=== PATIENT | female | born 1955 | race Caucasian/White ===

== ENCOUNTER → 2017-08-19 | Outpatient (CLI) | payer OTHER ==
--- NOTE | 2017-08-20 13:54 | MAMMOGRAPHY REPORT ---
BILATERAL DIGITAL SCREENING MAMMOGRAM TOMOSYNTHESIS WITH CAD: 08/19/2017 CLINICAL HISTORY: Routine screening. Patient has no complaints. TECHNIQUE: Breast tomosynthesis in addition to standard 2D mammography was performed. Current study was also evaluated with a Computer Aided Detection (CAD) system. COMPARISON: Comparison is made to exams dated: 09/03/2015 ultrasound, 09/03/2015 mammogram, 05/13/2015 mammogram, 05/23/2013 mammogram, 06/12/2011 mammogram, and 12/26/2009 mammogram - [facility]. BREAST COMPOSITION: The tissue of both breasts is heterogeneously dense, which may obscure small mas ses. FINDINGS: No suspicious masses, calcifications, or areas of architectural distortion are noted in ei ther breast. There has been no significant interval change compared to prior exams. Scattered bilate ral benign-appearing calcifications are not significantly changed. IMPRESSION: ACR BI-RADS CATEGORY 2: BENIGN There is no mammographic evidence of malignancy. A 1 year screening mammogram is recommended. The pa tient will receive written notification of the results. Approximately 10% of breast cancers are not detected with mammography. A negative mammographic report should not delay biopsy if a clinically suggestive mass is present. Sangeetha Brooks M.D. ah/:08/19/2017 15:51:26 Public Works Director: Paty MULLER)(M), [facility] letter sent: Normal 1/2 BI-RADS Code: ACR BI-RADS Category 2: Benign
== END | disposition home or self-care (01) ==
LOC: C.MAMM 15:24
PROVIDERS: ATTEND Family Medicine
DX: Z12.31 Encounter for screening mammogram for malignant neoplasm of breast (principal)

== ENCOUNTER 2023-04-20 00:10 | Inpatient (IN) ==
[2023-04-20] MEDS ORDERED: ALBUTEROL 0.083% NEBU SOLN 3 ML VIAL NEB STA (00:45)
--- NOTE | 2023-04-20 00:45 | Emergency Department Note ---
Impression & Plan Acute hyponatremia, Shortness of breath ED Provider Note NAME: RYAN BENNETT AGE: 67 SEX: F : 1955 ARRIVES VIA: Walk-In INFORMANT: Patient ED PROVIDER(S): Samuel Morrow DO CHIEF COMPLAINT: shortness of breath HPI: Patient is a 67-year-old female who presents ER for cough, congestion, and shortness of breath which started 1 week ago. She notes that she is bringing up white phlegm. She was up last night coughing the whole night. She was seen in urgent care today. She was given inhaler and this her coughing and shortness of breath have improved significantly. She denies any history of asthma or COPD. She does know when she does feel little lightheaded. Denies any belly pain did vomit once after coughing fit. No dysuria, urgency, or frequency. Additional history was obtained from at bedside who notes that she has been getting worse ADDITIONAL HISTORY OBTAINED: Per HPI Chronic Medical/Social Conditions Affecting Care: Per HPI PAST MEDICAL HISTORY:See Below PAST SURGICAL HISTORY:See Below FAMILY HISTORY:See Below SOCIAL HISTORY:See Below HOME MEDICATIONS:See Below ALLERGIES:See Below VITALS:See Below PHYSICAL EXAMINATION: GENERAL: Sitting up in bed, alert, well appearing, well nourished, no distress, non-toxic EYE EXAM: normal conjunctiva. OROPHARYNX: no exudate, no erythema, lips, buccal mucosa, and tongue normal and mucous membranes are moist NECK: supple, no nuchal rigidity, no adenopathy, non-tender LUNGS: Diffuse wheezing bilateral. Normal chest wall mechanics HEART: no murmurs, S1 normal and S2 normal ABDOMEN: abdomen soft, non-tender, normo-active bowel sounds, no masses, no rebound or guarding. UPPER EXTREMITIES: upper extremities are grossly normal. LOWER EXTREMITIES: No pitting edema. Calf cervical NEURO EXAM: Normal sensorium, cranial nerves II-XII grossly intact, normal speech, no gross weakness of arms, no gross weakness of legs. MEDICAL DECISION MAKING: Patient is a 67-year-old female who presents to the ER for cough congestion shortness of breath. IV was established blood work was obtained. Labs show no significant leukocytosis or anemia. BMP with a moderate hyponatremia at 122 and hypokalemia 2.9. LFTs bilirubin was unremarkable. Troponin was negative. Lipase was normal. COVID flu RSV was negative. Chest x-ray was clean. Patient was given neb treatment and did feel improved. With the hyponatremia I did discuss case with Dr. Aleman for further evaluation management treatment. External Records Reviewed: None Consults/Care Managements Discussions: Per MDM Triage Nursing notes reviewed. Limited review of prior medical records performed Vital Signs: reviewed and remarkable for no significant abnormalities Differential diagnosis: Differential diagnoses includes but is not limited to pneumonia, bronchitis, COPD/Asthma exacerbation, pneumothorax, pulmonary embolism, congestive heart failure, acute coronary syndrome ER treatment provided: See below Diagnostics interpreted by me include EKG and cardiac monitoring as listed below: -Cardiac Monitoring: An order was placed for continuous cardiac monitoring. The monitor shows a rate of 98 with sinus rhythm. -ECG: Sinus rhythm rate 95 Normal axis No PVCs QTc 525 LBBB -Laboratory studies:Interpreted by me as stated above in MDM and shown below. Imaging studies: Xrays: As interpreted by me: Portable AP upright 1 view of the chest shows no focal infiltrate CTs show: none Procedures:none Critical Care: None Past Med/Surg History Social History Smoking Status: Never smoker Feels Safe at Home: Yes Allergies Allergies Allergy/AdvReac Type Severity Reaction Status Date / Time No Known Allergies Allergy Unverified 12/11/19 17:53 Home Meds Home Medications Medication Instructions Recorded Confirmed hydrochlorothiazide 25 mg tablet 25 mg PO QAM 12/11/19 04/20/23 omeprazole 40 mg capsule,delayed 40 mg PO QAM 12/11/19 04/20/23 release valsartan 80 mg tablet 80 mg PO QAM 12/11/19 04/20/23 albuterol sulfate 90 mcg/actuation 2 puff inhalation QID PRN 04/20/23 04/20/23 aerosol inhaler Shortness Of Breath Or Wheezing amoxicillin 875 mg-potassium 1 tab PO BID 04/20/23 04/20/23 clavulanate 125 mg tablet potassium chloride 20 mEq 20 meq PO QAM 04/20/23 04/20/23 tablet,extended release rosuvastatin 5 mg tablet 5 mg PO QPM 04/20/23 04/20/23 Results & Data (ED) Vital Signs Vital Signs - 24 hr 04/20/23 00:25 04/20/23 00:48 04/20/23 00:49 Temperature 36.9 C Temperature Source Temporal Artery Scan Pulse Rate 104 H 98 H Pulse Rate [Finger] 99 H Pulse Rhythm [Finger] Regular Pulse Strength [Finger] Normal Respiratory Rate 16 20 Respiratory Effort / Characteristics Non-Labored Spontaneous Non-Labored Spontaneous Respiratory Depth Normal Normal Blood Pressure 162/104 H Blood Pressure [Right Arm] 139/97 Blood Pressure Mean 123 Blood Pressure Mean [Right Arm] 111 Pulse Oximetry 97 98 Oxygen Delivery Method Room Air Room Air Oxygen Flow Rate Sepsis Recent Fever Within 48 Hours No Sepsis New/Unexplained Change in Mental Status No Sepsis Action Taken by Nursing No Action Required 04/20/23 00:50 04/20/23 02:12 Temperature Temperature Source Pulse Rate Pulse Rate [Finger] 99 H Pulse Rhythm [Finger] Regular Pulse Strength [Finger] Normal Respiratory Rate 22 Respiratory Effort / Characteristics Non-Labored Spontaneous Respiratory Depth Normal Blood Pressure Blood Pressure [Right Arm] 146/88 H Blood Pressure Mean Blood Pressure Mean [Right Arm] 107 Pulse Oximetry 98 96 Oxygen Delivery Method Room Air Room Air Oxygen Flow Rate 0 Sepsis Recent Fever Within 48 Hours Sepsis New/Unexplained Change in Mental Status Sepsis Action Taken by Nursing Laboratory Data 04/20/23 00:51 04/20/23 00:51 Lab Results 04/20/23 04/20/23 Range/Units 00:50 00:51 WBC 8.91 (4.8-10.8) K/ul RBC 4.21 (4.20-5.40) M/uL Hgb 13.2 (12.0-16.0) g/dl Hct 35.8 L (37.0-47.0) % MCV 85.0 (80.0-100.0) fL MCH 31.4 (25.0-34.0) pg MCHC 36.9 H (32.0-36.0) g/dL RDW Std Deviation 35.2 L (36.4-46.3) fL RDW Coeff of Gill 11.5 (11.5-14.5) % Plt Count 248 (130-400) K/uL MPV 10.2 (9.4-12.4) fL Immature Gran % (Auto) 0.3 % Neut % (Auto) 70.7 % Lymph % (Auto) 19.3 % [place] % (Auto) 7.4 % Eos % (Auto) 1.7 % Baso % (Auto) 0.6 % Neut # (Auto) 6.30 (1.40-6.50) K/uL Lymph # (Auto) 1.72 (1.20-3.40) K/uL [place] # (Auto) 0.66 H (0.11-0.59) K/uL Eos # (Auto) 0.15 (0.00-0.50) K/uL Baso # (Auto) 0.05 (0.00-0.20) K/uL Immature Gran # (Auto) 0.03 (0.01-0.20) K/uL Sodium 122 L (136-145) mmol/L Potassium 2.9 L (3.5-5.1) mmol/L Chloride 88 L (98-107) mmol/L Carbon Dioxide 24 (21-32) mmol/L Anion Gap 10 (3-11) BUN 8 (6-23) mg/dl Creatinine 0.71 (0.6-1.2) mg/dl Est Cr Clr Drug Dosing 81.6 ml/min Est GFR ( Amer) 103.6 ml/min Est GFR (Non-Af Amer) 89.4 ml/min BUN/Creatinine Ratio 11.3 (10-20) Glucose 122 H (70-99(Fasting)) mg/dl Calcium 9.7 (8.6-10.3) mg/dl Total Bilirubin 0.9 (0.2-1.0) mg/dl AST 20 (13-39) U/L ALT 17 (7-52) U/L Alkaline Phosphatase 67 (34-104) U/L Troponin I High Sens 3.6 (0-14) pg/ml Total Protein 7.6 (6.0-8.3) gm/dl Albumin 4.6 (3.4-5.0) gm/dl Globulin 3.0 (2.5-4.0) gm/dl Albumin/Globulin Ratio 1.5 (0.9-2) Lipase 38 (11-82) U/L SARS-CoV-2 (PCR) NEGATIVE (Negative) Influenza Type A (PCR) Negative (Neg) Influenza Type B (PCR) Negative (Neg) RSV (RT-PCR) Negative (Neg) Administered Medications Discontinued Medications Albuterol (Albuterol 0.083% Nebu Soln 3 Ml Vial) 2.5 mg NEB NOW STA; Protocol Stop: 04/20/23 00:46 Last Admin: 04/20/23 01:03 Dose: 2.5 mg Documented By: ASIM Lorazepam (Lorazepam 1 Mg Tab) 1 mg SL NOW STA Stop: 04/20/23 01:49 Last Admin: 04/20/23 01:54 Dose: 1 mg Documented By: ASIM Discharge Plan Visit Data Chief Complaint: Shortness of Breath/Dyspnea Stated Complaint: SOB, LOW O2 LEVELS, DIZZINESS ED Provider: Samuel Morrow Discharge Problem: Acute hyponatremia, Shortness of breath Forms Stand Alone Forms: My [facility] Prescriptions Prescriptions: No Action omeprazole 40 mg capsule,delayed release(DR/EC) 40 mg PO QAM hydrochlorothiazide 25 mg tablet 25 mg PO QAM valsartan 80 mg tablet 80 mg PO QAM albuterol sulfate 90 mcg/actuation HFA aerosol inhaler 2 puff INHALATION QID PRN (Reason: Shortness Of Breath Or Wheezing) amoxicillin-pot clavulanate 875-125 mg tablet 1 tab PO BID Rx Instructions: ordered 04/19/23 take for 10 days potassium chloride 20 mEq tablet extended release 20 meq PO QAM rosuvastatin 5 mg tablet 5 mg PO QPM Referrals Referrals: Heather Borjas DO [Primary Care Provider] -
[2023-04-20 01:07] LABS: Basophils # (auto) 0.05 K/uL (0.00-0.20); Basophils % (auto) 0.6 %; Eosinophils # (auto) 0.15 K/uL (0.00-0.50); Eosinophils % (auto) 1.7 %; Hematocrit (blood only) 35.8 % (37.0-47.0); Hemoglobin 13.2 g/dl (12.0-16.0); Immature Granulocytes # (auto) 0.03 K/uL (0.01-0.20); Immature Granulocytes % (auto) 0.3 %; Lymphocytes # (auto) 1.72 K/uL (1.20-3.40); Lymphocytes % (auto) 19.3 %; Mean Corpuscular Hemoglobin 31.4 pg (25.0-34.0); Mean Corpuscular Hgb Conc 36.9 g/dL (32.0-36.0); Mean Platelet Volume 10.2 fL (9.4-12.4); Monocytes # (auto) 0.66 K/uL (0.11-0.59); Monocytes % (auto) 7.4 %; Neutrophils % (auto) 70.7 %; Platelet Count 248 K/uL (130-400); RDW Coefficient of Variation 11.5 % (11.5-14.5); RDW Standard Deviation 35.2 fL (36.4-46.3); Red Blood Count 4.21 M/uL (4.20-5.40); White Blood Count 8.91 K/ul (4.8-10.8)
[2023-04-20 01:20] LABS: Albumin Globulin Ratio 1.5 (0.9-2); Albumin Level 4.6 gm/dl (3.4-5.0); BUN Creatinine Ratio 11.3 (10-20); Bilirubin,Total 0.9 mg/dl (0.2-1.0); Calcium 9.7 mg/dl (8.6-10.3); Creatinine Clr Calc Pharmacy 81.6 ml/min; Est GFR (African American) 103.6 ml/min; Est GFR (Non-African American) 89.4 ml/min; Potassium 2.9 mmol/L (3.5-5.1); Total Protein 7.6 gm/dl (6.0-8.3)
[2023-04-20 01:44] LABS: Influenza A virus by PCR Negative (Neg); Influenza B virus by PCR Negative (Neg); RSV by PCR Negative (Neg); SARS CoV2 RNA(COVID-19) Ceph NEGATIVE (Negative)
[2023-04-20] MEDS ORDERED: LORazepam 1 MG TAB SL STA (01:48)
[2023-04-20 01:53] LABS: Troponin I High Sensitivity 3.6 pg/ml (0-14)
[2023-04-20] MEDS: POTASSIUM CHLORIDE / WTR 10 MEQ/100 ML PLCT IV SCH ×2 (03:04→03:53)
[2023-04-20] MEDS ORDERED: POTASSIUM CHLORIDE CRTAB 20 MEQ TABCR PO STA (03:17)
[2023-04-20] MEDS ORDERED: guaiFENesin/CODEINE 100MG/10MG 5ML UDC PO STA (03:57)
--- NOTE | 2023-04-20 04:12 | History & Physical Report ---
Date of Service April 20, 2023 Assessment & Plan (1) Acute bronchitis: Plan: 67-year-old female with past medical significant for hypokalemia, hyperlipidemia, allergic rhinitis, hypertension, generalized anxiety disorder, presents with shortness of breath and cough ongoing since last Wednesday and progressively worsening. Bilateral rhonchi and wheezing heard. Acute bronchitis Shortness of breath and cough Bilateral rhonchi COVID, flu and RSV negative Check respiratory bio fire No leukocytosis or fevers We will check procalcitonin levels We will place on short course of steroids Nebs [id number] and as needed We will get a get CT chest for better evaluation Close monitor Hyponatremia Sodium 122 Patient states poor intake last few days We will hold hydrochlorothiazide Gentle fluids NS 50 mill per hour Follow urine osmole's and urine sodium levels Follow serial BMP Slow correction Consult nephrology in a.m. Hypokalemia Potassium 2.9 Replace We will further repeat labs Hypertension Continue valsartan Holding hydrochlorothiazide We will monitor GERD On omeprazole Hyperlipidemia On statin DVT prophylaxis Lovenox Disposition Med/telemetry Addendum; Ct scan showed atypical infection in lower lobes. placed on Doxycycline. Consulted Pulmonary. Full code History of Present Illness Chief Complaint: Shortness of breath and cough Primary Care Provider: Heather Borjas DO 67-year-old female with past medical significant for hypokalemia, hyperlipidemia, allergic rhinitis, hypertension, generalized anxiety disorder, presents with shortness of breath and cough ongoing since last Wednesday. Cough is progressively getting worse. Denies any fevers. Today she was feeling lig htheaded. No blurred visions. No earache. Has some sore throat from coughing. Last few days she is not eating and drinking much. No nausea. No abdominal pain. No diarrhea. Normal bladder movements. Hemodynamics stable currently. Past medical history. As mentioned above Past surgical history. Colonoscopy. Colposcopy. Endometrial cryoablation. Hysteroscopy with biopsy. Rhinoplasty. Laser surgery for rosacea. Social history. . Quit smoking 1982. Alcohol occasional. No drug use. Family history. Mother had Alzheimer's disease. Breast cancer. Father had colon cancer. SVT. Maternal grandmother had breast cancer. Paternal grandmother had breast cancer. Allergies Allergy/AdvReac Type Severity Reaction Status Date / Time No Known Allergies Allergy Unverified 12/11/19 17:53 Home Medications Medication Instructions Recorded Confirmed Type hydrochlorothiazide 25 mg tablet 25 mg PO QAM 12/11/19 04/20/23 History omeprazole 40 mg capsule,delayed 40 mg PO QAM 12/11/19 04/20/23 History release valsartan 80 mg tablet 80 mg PO QAM 12/11/19 04/20/23 History albuterol sulfate 90 mcg/actuation 2 puff inhalation QID PRN 04/20/23 04/20/23 History aerosol inhaler Shortness Of Breath Or Wheezing amoxicillin 875 mg-potassium 1 tab PO BID 04/20/23 04/20/23 History clavulanate 125 mg tablet potassium chloride 20 mEq 20 meq PO QAM 04/20/23 04/20/23 History tablet,extended release rosuvastatin 5 mg tablet 5 mg PO QPM 04/20/23 04/20/23 History Past Med/Surg History Social History Smoking Status: Former smoker Hx Alcohol Use: Yes Alcohol type: wine Hx Substance Use: No Preferred Language: Danish Communication Ability: Effective Sales Support Advisor Required: No Beliefs That Will Affect Care: None Current Living Situation: Spouse Other Information That Helps Us Care for You: No Feels Safe at Home: Yes Safety Concerns: Feels Safe At This Time Review of Systems Review of Systems: All systems reviewed & are unremarkable except as noted in HPI & below Physical Exam Physical Exam: General- Not in distress Head- atraumatic Eyes- PERRL. ENT- oropharynx clear Neck- supple, no JVD. Lungs- clear to auscultation b/l rhonchi and wheezing heard Heart- regular rhythm; no murmur, no gallop. Abdomen- normal bowel sounds, soft, nontender, no distension. Extremities- no pretibial edema, no erythema seen. Neuro- alert, oriented x 3; PERRL, no facial palsy; no dysarthria; moves extremities. Skin- warm & dry Results & Data Results & Data Vital Signs (Past 12 Hours) Vital Signs Temp Pulse Pulse Resp BP BP Pulse Ox 04/20/23 04:00 87 20 141/95 H 97 04/20/23 02:12 99 H 22 146/88 H 96 04/20/23 00:50 98 04/20/23 00:49 99 H 20 139/97 98 04/20/23 00:48 98 H 04/20/23 00:25 36.9 C 104 H 16 162/104 H 97 O2 Del Method O2 Flow Rate 04/20/23 04:00 Room Air 04/20/23 02:12 Room Air 04/20/23 00:50 Room Air 0 04/20/23 00:49 Room Air 04/20/23 00:48 04/20/23 00:25 Room Air Code Status & VTE Plan VTE Prophylaxis Plan VTE Prophylaxis will be ordered: Yes
[2023-04-20] MEDS: SODIUM CHLORIDE 0.9% 1,000 ML IV SCH ×2 (04:19→22:20)
[2023-04-20 05:01] LABS: Adenovirus PCR Not Detected (NotDetected); Bordetella parapertussis PCR Not Detected (NotDetected); Bordetella pertussis PCR Not Detected (NotDetected); Chlamydia pneumoniae PCR Not Detected (NotDetected); Coronavirus 229E PCR Not Detected (NotDetected); Coronavirus CoV-2 (COVID19)PCR Not Detected (NotDetected); Coronavirus HKU1 PCR Not Detected (NotDetected); Coronavirus NL63 PCR Not Detected (NotDetected); Coronavirus OC43PCR Not Detected (NotDetected); Human Metapneumovirus PCR Not Detected (NotDetected); Influenza A PCR Not Detected (NotDetected); Influenza B PCR Not Detected (NotDetected); Mycoplasma pneumoniae PCR Not Detected (NotDetected); Parainfluenza Virus 1 PCR Not Detected (NotDetected); Parainfluenza Virus 2 PCR Not Detected (NotDetected); Parainfluenza Virus 3 PCR Not Detected (NotDetected); Parainfluenza Virus 4 PCR Not Detected (NotDetected); Respiratory Syncytial VirusPCR Not Detected (NotDetected); Rhinovirus/Enterovirus PCR Not Detected (NotDetected)
--- NOTE | 2023-04-20 05:58 | CT Scan Report ---
Exam(s): CT CHEST Without Contrast EXAM: CT Chest Without Intravenous Contrast CLINICAL HISTORY: Reason for exam: persisitent cough. TECHNIQUE: Axial computed tomography images of the chest without intravenous contrast. Automated exposure control was utilized for the study. A dose lowering technique was utilized adhering to the principles of ALARA. COMPARISON: No relevant prior studies available. FINDINGS: Lungs: Tree-in-bud nodularity within the lower lobes which may relate to chronic atypical infection. Pleural space: Unremarkable. No pneumothorax. No significant effusion. Heart: Coronary artery calcifications. No significant pericardial effusion. Mediastinum: Small esophageal hiatal hernia. Bones/joints: Degenerative changes in the spine. No acute fracture. No dislocation. Soft tissues: Unremarkable. Vasculature: Atherosclerotic disease. Lymph nodes: Prominent retrocrural lymph nodes measuring up to 6 mm which may be reactive in nature. Kidneys and ureters: Simple right renal cyst. No follow-up of this simple cyst is necessary. Simple left renal cyst. No follow-up of this simple cyst is necessary. IMPRESSION: 1. Tree-in-bud nodularity within the lower lobes which may relate to chronic atypical infection. 2. No other acute findings. 3. Incidental findings as described. Electronically signed by: Ervin Tucker MD 04/20/23 05:57 AM
[2023-04-20] MEDS ORDERED: ACETAMINOPHEN 325 MG TAB PO PRN (06:29)
[2023-04-20] MEDS ORDERED: ALBUTEROL HFA 8 GM INHALER INH PRN (06:29)
[2023-04-20] MEDS ORDERED: POLYETHYLENE (MIRALAX) 17 GM PACK PO PRN (06:29)
[2023-04-20] MEDS ORDERED: guaiFENesin/CODEINE 100MG/10MG 5ML UDC PO PRN (06:29)
[2023-04-20] MEDS ORDERED: NITROGLYCERIN SL 0.4 MG/TAB TAB SL PRN (06:29)
--- NOTE | 2023-04-20 07:11 | XRay Report ---
XR chest 1V portable CLINICAL HISTORY: Chest pain, nonspecific TECHNIQUE: Single frontal radiograph of the chest was obtained. Comparison: Comparison is made to chest radiograph 12/11/2019 FINDINGS: No lines and tubes are seen. The cardiomediastinal silhouette is normal. The lungs are clear. No evid ence of pleural effusion or pneumothorax. IMPRESSION: No acute chest disease. ACT 112: Negative or not required by law. Electronically signed by: Rafa Riggins M.D. 04/20/2023 7:10 AM
[2023-04-20] MEDS: ENOXAPARIN INJ 40 MG/0.4 ML SYR SQ SCH (07:18)
[2023-04-20 07:56] LABS: BUN Creatinine Ratio 8.6 (10-20); Calcium 9.2 mg/dl (8.6-10.3); Creatinine Clr Calc Pharmacy 82.8 ml/min; Est GFR (African American) 105.4 ml/min; Est GFR (Non-African American) 90.9 ml/min; Magnesium 1.9 mg/dl (1.7-2.4); Potassium 3.6 mmol/L (3.5-5.1); Troponin I High Sensitivity 3.8 pg/ml (0-14)
[2023-04-20 08:00] LABS: Basophils # (auto) 0.05 K/uL (0.00-0.20); Basophils % (auto) 0.6 %; Eosinophils # (auto) 0.15 K/uL (0.00-0.50); Eosinophils % (auto) 1.9 %; Hematocrit (blood only) 33.6 % (37.0-47.0); Hemoglobin 12.3 g/dl (12.0-16.0); Immature Granulocytes # (auto) 0.03 K/uL (0.01-0.20); Immature Granulocytes % (auto) 0.4 %; Lymphocytes # (auto) 1.74 K/uL (1.20-3.40); Lymphocytes % (auto) 21.7 %; Mean Corpuscular Hemoglobin 31.2 pg (25.0-34.0); Mean Corpuscular Hgb Conc 36.6 g/dL (32.0-36.0); Mean Corpuscular Volume 85.3 fL (80.0-100.0); Mean Platelet Volume 10.6 fL (9.4-12.4); Monocytes # (auto) 0.65 K/uL (0.11-0.59); Monocytes % (auto) 8.1 %; Neutrophils % (auto) 67.3 %; Platelet Count 222 K/uL (130-400); RDW Coefficient of Variation 11.6 % (11.5-14.5); Red Blood Count 3.94 M/uL (4.20-5.40); White Blood Count 8.02 K/ul (4.8-10.8)
[2023-04-20] MEDS: VALSARTAN 80 MG TAB PO SCH (08:34)
[2023-04-20] MEDS: POTASSIUM CHLORIDE CRTAB 20 MEQ TABCR PO SCH (08:34)
[2023-04-20] MEDS: DOXYCYCLINE HYCLATE 100 MG CAP PO SCH ×2 (08:34→20:33)
[2023-04-20] MEDS: BENZONATATE 100 MG CAPSULE PO SCH ×3 (08:35→20:33)
[2023-04-20] MEDS: PANTOprazole 40 MG TAB PO SCH (08:35)
[2023-04-20] MEDS: ALBUT/IPRATROP 3MG/0.5MG NEB 3 ML VIAL NEB SCH ×4 (08:38→19:24)
[2023-04-20] MEDS ORDERED: predniSONE 20 MG TAB PO SCH (09:00)
[2023-04-20] MEDS ORDERED: diphenhydrAMINE Capsule 25 MG CAP PO ONE (09:45)
--- NOTE | 2023-04-20 10:11 | Nephrology Consultation ---
Date of Consultation April 20, 2023 Assessment & Plan (1) Hyponatremia: Severe but improving hyponatremia unsure chronicity, therefore chronic. Presenting sodium 122 at 01 100 on April 20. Laboratory studies most consistent with polydipsia in the setting of decreased food intake with illness. Complicated by thiazide use as an outpatient plus or minus chronic structural lung pathology Continue to hold HCTZ Fluid limit 1.8 L daily ordered Target sodium for midnight is no more than 128; currently improving acceptable rate Reasonable for now to continue low rate of normal saline - agree w/ q6h bmp x 2 more today - f/u pulmonary recs (2) Hypertension: With acceptable control currently on monotherapy with losartan. This should continue History of Present Illness Reason for Consultation: hyponatremia Requesting Physician: Dr Guzman Attending Physician: Ap Sharp MD History of Present Illness 67-year-old female whom I am asked to evaluate for hyponatremia was admitted overnight for acute bronchitis. Past medical history includes hypertension on hydrochlorothiazide, anxiety not on OP meds, hyperlipidemia. Presenting sodium 122 at 0100 today. Follow-up sodium at 0700 124. Patient endorsed poor oral intake for the few days prior to presentation. Hydrochlorothiazide was held and patient was started on normal saline at 50 mL hourly. Patient also had hypokalemia on presentation with presenting potassium 2.9. She was started on normal saline at 50 mL hourly. She received 40 mill equivalents oral potassium as well as 20 mill equivalents IV potassium as well as standing 20 mill equivalent daily oral dose. Also started on doxycycline. Denies f/c, ambulatory dysfunction. dyspnea improving; no cough. states she came to ED b/c her "face felt funny" along w/ worsening dyspnea and lightheadedness, w/ worries she could pass out. no new/worrisome voiding sx; she takes no nsaids. no diarrhea. endorses she was drinking >> what she was eating..had emesis x 1. denies confusion/altered MS. Allergies Allergy/AdvReac Type Severity Reaction Status Date / Time No Known Allergies Allergy Unverified 12/11/19 17:53 Home Medications Medication Instructions Recorded Confirmed Type hydrochlorothiazide 25 mg tablet 25 mg PO QAM 12/11/19 04/20/23 History omeprazole 40 mg capsule,delayed 40 mg PO QAM 12/11/19 04/20/23 History release valsartan 80 mg tablet 80 mg PO QAM 12/11/19 04/20/23 History albuterol sulfate 90 mcg/actuation 2 puff inhalation QID PRN 04/20/23 04/20/23 History aerosol inhaler Shortness Of Breath Or Wheezing amoxicillin 875 mg-potassium 1 tab PO BID 04/20/23 04/20/23 History clavulanate 125 mg tablet potassium chloride 20 mEq 20 meq PO QAM 04/20/23 04/20/23 History tablet,extended release rosuvastatin 5 mg tablet 5 mg PO QPM 04/20/23 04/20/23 History Patient History Medical History Generalized anxiety disorder Hyperlipidemia Hypertension Surgical History History of colposcopy H/O colonoscopy Social History Smoking Status: Former smoker Hx Alcohol Use: Yes Alcohol type: wine Hx Substance Use: No Preferred Language: Egyptian Communication Ability: Effective Mental Health Consultant Required: No Beliefs That Will Affect Care: None Current Living Situation: Spouse Other Information That Helps Us Care for You: No Feels Safe at Home: Yes Safety Concerns: Feels Safe At This Time Assistive Devices: None Review of Systems 2 Review of Systems: All systems reviewed & are unremarkable except as noted in HPI & below Physical Exam 2 Constitutional: well developed, well nourished and cooperative; no acute distress Eyes: EOM intact bilaterally ENMT: Ears: no external ear abnormality Nose: no external nose abnormality Mouth: + dry oral mucous membranes Neck: no nuchal rigidity Respiratory: normal respiratory effort Auscultation: + diminished lung sounds, + crackles (bibasilar), + rhonchi (some [place] L base) and + wheezes Cardiovascular: RRR, no murmur, no edema Gastrointestinal (Abdomen): Inspection/Auscultation: normal bowel sounds P ercussion/Palpation: abdomen soft; abdomen nontender Musculoskeletal: Extremities: strength 5/5 throughout Skin: no rashes, warm and dry Neurologic: cedeno, fluent speech, no tremor Psychiatric: Orientation: alert and oriented x 3 Affect: + anxious affect and + tearful affect Results & Data Vital Signs (Past 12 Hours) Vital Signs Temp Pulse Pulse Resp BP BP Pulse Ox 04/20/23 07:20 36.6 C 84 16 139/93 97 04/20/23 07:13 82 04/20/23 07:00 36.6 C 83 16 139/93 96 04/20/23 06:31 80 20 120/77 96 04/20/23 06:31 04/20/23 06:27 81 20 120/77 94 04/20/23 06:26 89 20 120/77 94 04/20/23 04:46 88 04/20/23 04:00 87 20 141/95 H 97 04/20/23 02:12 99 H 22 146/88 H 96 04/20/23 00:50 98 04/20/23 00:49 99 H 20 139/97 98 04/20/23 00:48 98 H 04/20/23 00:25 36.9 C 104 H 16 162/104 H 97 Pulse Ox O2 Del Method O2 Del Method O2 Flow Rate 04/20/23 07:20 Room Air 04/20/23 07:13 04/20/23 07:00 Room Air 04/20/23 06:31 Room Air 04/20/23 06:31 95 Room Air 04/20/23 06:27 Room Air 04/20/23 06:26 Room Air 04/20/23 04:46 04/20/23 04:00 Room Air 04/20/23 02:12 Room Air 04/20/23 00:50 Room Air 0 04/20/23 00:49 Room Air 04/20/23 00:48 04/20/23 00:25 Room Air Laboratory Results 04/20/23 06:53 04/20/23 06:53 Serum osmolality 253 Urine osmolality 158 Urine sodium [address] chest Noncon (images personally reviewed by me): Simple left renal cyst; liver cyst, per report tree-in-bud nodularity bilateral lower lobes related possibly to chronic atypical infection Chest x-ray (images reviewed personally by me): No acute process
--- NOTE | 2023-04-20 11:06 | Electrocardiogram Report ---
Test Reason : Blood Pressure : / mmHG Vent. Rate : 095 BPM Atrial Rate : 095 BPM P-R Int : 164 ms QRS Dur : 146 ms QT Int : 418 ms P-R-T Axes : 040 065 024 degrees QTc Int : 525 ms Normal sinus rhythm Right bundle branch block Abnormal ECG When compared with ECG of 11-DEC-2019 16:28, No significant change Confirmed by Alexis Leija ([id number]) on 04/20/2023 11:06:33 AM Referred By: REFERRED SELF Confirmed By:Alexis Leija
[2023-04-20] MEDS: amLODIPine BESYLATE 5 MG TAB PO SCH (11:07)
--- NOTE | 2023-04-20 12:33 | Pulmonary Consultation ---
Date of Consultation April 20, 2023 Assessment & Plan (1) Shortness of breath: (2) Acute hyponatremia: (3) Pneumonia: Laterality: bilateral Pneumonia type: due to unspecified organism Plan 67 year old female without significant past medical history presented with pneumonia and dehydration. Outpatient antibiotics and follow up is appropriate if able to maintain sufficient po intake. Mucinex and adding humidifier can be used to facilitate expectoration. Patient should follow up with primary in two weeks and as needed with pulmonary. History of Present Illness Attending Physician: Ap Sharp MD History of Present Illness 67-year-old female with hyperlipidemia, allergic rhinitis, hypertension, generalized anxiety disorder, presents with shortness of breath and cough ongoing since last Wednesday. Cough is progressively getting worse. Denies any fevers. Today she was feeling lightheaded. No blurred visions. Has some sore throat from coughing. Last few days she is not eating and drinking much. No nausea. No abdominal pain. No diarrhea. No pulmonary history. 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 Chest CT showed bibasilar nodular infiltrates. She received IVF and doxycycline in the ED. She reports feeling better at time of exam. She is anxious about CT findings. Allergies Allergy/AdvReac Type Severity Reaction Status Date / Time No Known Allergies Allergy Unverified 12/11/19 17:53 Home Medications Medication Instructions Recorded Confirmed Type hydrochlorothiazide 25 mg tablet 25 mg PO QAM 12/11/19 04/20/23 History omeprazole 40 mg capsule,delayed 40 mg PO QAM 12/11/19 04/20/23 History release valsartan 80 mg tablet 80 mg PO QAM 12/11/19 04/20/23 History albuterol sulfate 90 mcg/actuation 2 puff inhalation QID PRN 04/20/23 04/20/23 History aerosol inhaler Shortness Of Breath Or Wheezing amoxicillin 875 mg-potassium 1 tab PO BID 04/20/23 04/20/23 History clavulanate 125 mg tablet potassium chloride 20 mEq 20 meq PO QAM 04/20/23 04/20/23 History tablet,extended release rosuvastatin 5 mg tablet 5 mg PO QPM 04/20/23 04/20/23 History Patient History Medical History Generalized anxiety disorder Hyperlipidemia Hypertension Surgical History History of colposcopy H/O colonoscopy Social History Smoking Status: Former smoker Hx Alcohol Use: Yes Alcohol type: wine Hx Substance Use: No Preferred Language: Divehi Communication Ability: Effective Speeder Tender Required: No Beliefs That Will Affect Care: None Current Living Situation: Spouse Other Information That Helps Us Care for You: No Feels Safe at Home: Yes Safety Concerns: Feels Safe At This Time Assistive Devices: None Review of Systems Review of Systems: as per HPI. remainder of ROS is negative. Physical Exam Respiratory: normal respiratory effort Auscultation: + rhonchi Psychiatric: A+Ox3, euthymic affect Results & Data Results & Data Vital Signs (Past 12 Hours) Vital Signs Temp Pulse Pulse Resp BP BP Pulse Ox 04/20/23 11:36 97 H 11 L 99 04/20/23 11:08 99 H 18 135/89 95 04/20/23 07:20 36.6 C 84 16 139/93 97 04/20/23 07:13 82 04/20/23 07:00 36.6 C 83 16 139/93 96 04/20/23 06:31 80 20 120/77 96 04/20/23 06:31 04/20/23 06:27 81 20 120/77 94 04/20/23 06:26 89 20 120/77 94 04/20/23 04:46 88 04/20/23 04:00 87 20 141/95 H 97 04/20/23 02:12 99 H 22 146/88 H 96 04/20/23 00:50 98 04/20/23 00:49 99 H 20 139/97 98 04/20/23 00:48 98 H 04/20/23 00:25 36.9 C 104 H 16 162/104 H 97 Pulse Ox O2 Del Method O2 Del Method O2 Flow Rate FiO2 04/20/23 11:36 Room Air 21 04/20/23 11:08 Room Air 04/20/23 07:20 Room Air 04/20/23 07:13 04/20/23 07:00 Room Air 04/20/23 06:31 Room Air 04/20/23 06:31 95 Room Air 04/20/23 06:27 Room Air 04/20/23 06:26 Room Air 04/20/23 04:46 04/20/23 04:00 Room Air 04/20/23 02:12 Room Air 04/20/23 00:50 Room Air 0 04/20/23 00:49 Room Air 04/20/23 00:48 04/20/23 00:25 Room Air PG Care Time/CCT Total # of Minutes Spent Total Time Spent with Patient: Total time spent is greater than 50% in coordination of care (as documented) at patient's floor/unit and/or counseling patient: Coding Level of Care Code 50943 OP VST NEW MOD 45-59 MIN Diagnoses Shortness of breath R06.02 Acute hyponatremia E87.1 Pneumonia J18.9 Laterality: bilateral Pneumonia type: due to unspecified organism
[2023-04-20 13:07] LABS: BUN Creatinine Ratio 10.8 (10-20); Calcium 9.6 mg/dl (8.6-10.3); Creatinine Clr Calc Pharmacy 78.3 ml/min; Est GFR (African American) 98.5 ml/min; Potassium 3.4 mmol/L (3.5-5.1)
[2023-04-20] MEDS ORDERED: ALPRAZolam 0.25 MG TABLET PO STA (13:13)
[2023-04-20] MEDS ORDERED: ALPRAZolam 0.5 MG TABLET PO STA (13:25)
--- NOTE | 2023-04-20 14:41 | Communication Note ---
Date of Service: April 20, 2023 Patient seen and examined at bedside. She reports that she is feeling better; reports that dizziness has improved. Hydrochlorothiazide on hold for hyponatremia and hypokalemia. Discussed with patient about alternative antihypertensive in place of hydrochlorothiazide. She started on amlodipine 5 mg once a day Possible DC in a.m. if her sodium corrects appropriately. On physical examination; Constitutional: WD/WN, vitals as above, NAD, sitting up in bed, pleasant, conversing easily Respiratory: normal respiratory effort, lungs clear to auscultation, no wheeze, rales, rhonchi. Normal insp/exp effort, no accessory muscle use Cardiovascular: RRR, no murmur, no edema Vessels: no JVD or carotid bruit Chest: normal inspection of chest Abdomen: normal bowel sounds, soft, nontender, no hepatosplenomegaly Musculoskeletal: no cyanosis or clubbing, extremities motor strength 5/5 Skin: no rashes, warm and dry normal turgor Neurologic: PERRL, EOMI, accommodation nl, no face palsy, no dysarthria CN's II- XI intact bilaterally and moves all extremities Psychiatric: A+Ox3, euthymic affect
--- NOTE | 2023-04-20 16:31 | Electrocardiogram Report ---
Test Reason : Blood Pressure : / mmHG Vent. Rate : 120 BPM Atrial Rate : 120 BPM P-R Int : 158 ms QRS Dur : 128 ms QT Int : 376 ms P-R-T Axes : 026 070 -02 degrees QTc Int : 531 ms Sinus tachycardia Right bundle branch block Acute anterior infarction Abnormal ECG When compared with ECG of 20-APR-2023 00:47, No significant change Confirmed by Alexis Leija ([id number]) on 04/20/2023 4:30:46 PM Referred By: REFERRED SELF Confirmed By:Alexis Leija
[2023-04-20] MEDS ORDERED: ZOLPIDEM TARTRATE 5 MG TAB PO PRN (20:14)
[2023-04-20 20:25] LABS: BUN Creatinine Ratio 7.5 (10-20); Calcium 9.7 mg/dl (8.6-10.3); Creatinine Clr Calc Pharmacy 48.3 ml/min; Est GFR (African American) 54.9 ml/min; Est GFR (Non-African American) 47.4 ml/min
[2023-04-20] MEDS: methylPREDNISolone 40 MG in SYRINGE 0 ML IV SCH (20:33)
[2023-04-20] MEDS ORDERED: ROSUVASTATIN CALCIUM 5 MG TAB PO SCH (21:00)
[2023-04-20] MEDS ORDERED: MELATONIN 3 MG TAB PO ONE (21:00)
[2023-04-21] MEDS: ALBUT/IPRATROP 3MG/0.5MG NEB 3 ML VIAL NEB SCH ×3 (07:29→14:52)
[2023-04-21] MEDS: methylPREDNISolone 40 MG in SYRINGE 0 ML IV SCH (09:47)
[2023-04-21] MEDS: PANTOprazole 40 MG TAB PO SCH (09:48)
[2023-04-21] MEDS: POTASSIUM CHLORIDE CRTAB 20 MEQ TABCR PO SCH (09:48)
[2023-04-21] MEDS: amLODIPine BESYLATE 5 MG TAB PO SCH (09:48)
[2023-04-21] MEDS: VALSARTAN 80 MG TAB PO SCH (09:48)
[2023-04-21] MEDS: ENOXAPARIN INJ 40 MG/0.4 ML SYR SQ SCH ×2 (09:48→09:57)
[2023-04-21] MEDS: BENZONATATE 100 MG CAPSULE PO SCH ×2 (09:52→15:14)
--- NOTE | 2023-04-21 11:33 | Nephrology Progress Note ---
Date of Service April 21, 2023 Assessment & Plan (1) Hyponatremia: Plan: Severe but improving hyponatremia unsure chronicity, therefore chronic. Presenting sodium 122 at 0100 on April 20. Laboratory studies most consistent with polydipsia in the setting of decreased food intake with illness. Complicated by thiazide use as an outpatient plus or minus BL PNA Continue to hold HCTZ Fluid limit 1.8 L daily ordered as of last evening was improving acceptably >> labs for today ordered >> back at 134 WILL SIGN OFF; from neph standpoint she can be d/c home NEPHRO RECOMMENDATIONS -add hctz to allergy/intolerance list in EPIC > hyponatremia -check bmp at PCP f/u -d/c on low Na diet and 1.8L FR -monotherapy alone appears adequate for BP control -recommend hospital d/c appt w/ me in 2-3 wks with bmp, urine osm, serum osm, rd urine sodium to be ordered by neph RN prior to visit; if she has home BP cuff, should bring cuff and 3 Day bp log to f/u visit w/ me; renal nurse to instruct pt on how to do this care coordinated w/ dr Eubanks (2) Hypertension: Plan: With acceptable control currently on monotherapy with losartan. This should continue and is adequte Admission and Anticipated Discharge Date Admission Date: April 20, 2023 Subjective seen on rounds midday; labs still pending at that time. breathing better. ongoing cough possibly even more productive. no edema, no n/v Review of Systems 2 Review of Systems: All systems reviewed & are unremarkable except as noted in Subjective Physical Exam 2 Constitutional: well developed, well nourished and cooperative; no acute distress Eyes: EOM intact bilaterally ENMT: Ears: no external ear abnormality Nose: no external nose abnormality Mouth: + dry oral mucous membranes Neck: no nuchal rigidity Respiratory: normal respiratory effort Auscultation: + diminished lung sounds and + wheezes; no crackles and no rhonchi Cardiovascular: Rate/Rhythm: regular rhythm and + tachycardic Extremities: no edema Gastrointestinal (Abdomen): Inspection/Auscultation: normal bowel sounds P ercussion/Palpation: abdomen soft; abdomen nontender Musculoskeletal: Extremities: strength 5/5 throughout Skin: no rashes, warm and dry Psychiatric: Orientation: alert and oriented x 3 Affect: + anxious affect and + tearful affect Results & Data Vital Signs (Past 12 Hours) Vital Signs Temp Pulse Pulse Resp BP Pulse Ox O2 Del Method 04/21/23 07:37 36.4 C L 87 18 109/70 95 Room Air 04/21/23 07:30 Room Air 04/21/23 07:30 69 16 96 Room Air 04/21/23 07:00 71 04/21/23 03:07 36.6 C 95 H 18 128/85 94 Room Air 04/21/23 01:09 101 H Laboratory Results 04/20/23 06:53 04/21/23 12:17
[2023-04-21] MEDS: DOXYCYCLINE HYCLATE 100 MG CAP PO SCH (11:47)
[2023-04-21 13:04] LABS: BUN Creatinine Ratio 14.1 (10-20); Calcium 9.8 mg/dl (8.6-10.3); Creatinine Clr Calc Pharmacy 68.2 ml/min; Est GFR (African American) 83.3 ml/min; Est GFR (Non-African American) 71.9 ml/min; Potassium 3.9 mmol/L (3.5-5.1)
--- NOTE | 2023-04-21 14:42 | Hospitalist Progress Note ---
Date of Service April 21, 2023 Assessment & Plan (1) Acute bronchitis: Plan: 67-year-old female with past medical significant for hypokalemia, hyperlipidemia, allergic rhinitis, hypertension, generalized anxiety disorder, presents with shortness of breath and cough ongoing since last Wednesday and progressively worsening. Bilateral rhonchi and wheezing heard. Acute bronchitis/Atypical Pneumonia--POA --CT Chest: Tree-in-bud nodularity within the lower lobes which may relate to chronic atypical infection. No other acute findings. -- BioFire negative --Normal procalcitonin Pulmonology consulted Continue doxycycline IV Solu-Medrol transition to prednisone Saturating well on room air Plan to be discharged home today Hyponatremia Sodium 122>>129>>134 Hydrochlorothiazide discontinued Received gentle IV fluids Appreciate nephrology input Needs follow-up with nephrology upon discharge Hypokalemia Replace and monitor Hypertension Continue valsartan Hydrochlorothiazide discontinued Monitor BP GERD Continue omeprazole Hyperlipidemia On statin DVT prophylaxis Lovenox Disposition Home Admission and Anticipated Discharge Date Admission Date: April 20, 2023 Subjective Patient is seen and examined at bedside States feeling much better today Less cough Denies any dizziness, shortness of breath Sodium levels improved Discussed with nephrology today No other complaints Review of Systems Review of Systems: All systems reviewed & are unremarkable except as noted in Subjective Physical Exam Physical Exam: Physical Exam: Vitals signs as noted above General Appearance:Moderately built and nourished, no apparent distress Head: normocephalic, Atraumatic Eyes: normal inspection, EOMI Neck: supple, Trachea midline Respiratory/Chest: Decreased breath sounds, CTA, No accessory muscle use Cardiovascular: S1, S2, No murmur Abdomen/GI:Soft, Non tender, Bowel sounds present Extremities/Musculoskeletal:normal inspection, no edema Neurologic/Psych:AAOX3, grossly no focal neurological deficits Skin: normal color, warm Results & Data Results & Data Vital Signs (Past 12 Hours) Vital Signs Temp Pulse Pulse Resp BP Pulse Ox O2 Del Method 04/21/23 11:32 103 H 18 96 Room Air 04/21/23 07:37 36.4 C L 87 18 109/70 95 Room Air 04/21/23 07:30 Room Air 04/21/23 07:30 69 16 96 Room Air 04/21/23 07:00 71 04/21/23 03:07 36.6 C 95 H 18 128/85 94 Room Air Laboratory Results [facility] 04/20/23 04/21/23 19:18 12:17 Sodium 129 L 134 L Potassium 4.0 3.9 Chloride 97 L 101 Carbon Dioxide 21 23 BUN 9 12 Creatinine 1.20 D 0.85 D Glucose 209 H 130 H Calcium 9.7 9.8
--- NOTE | 2023-04-21 14:59 | Discharge Summary ---
Date of Service April 21, 2023 Admission HPI Per Admitting Provider 67-year-old female with past medical significant for hypokalemia, hyperlipidemia, allergic rhinitis, hypertension, generalized anxiety disorder, presents with shortness of breath and cough ongoing since last Wednesday. Cough is progressively getting worse. Denies any fevers. Today she was feeling lightheaded. No blurred visions. No earache. Has some sore throat from coughing. Last few days she is not eating and drinking much. No nausea. No abdominal pain. No diarrhea. Normal bladder movements. Hemodynamics stable currently. Past medical history. As mentioned above Past surgical history. Colonoscopy. Colposcopy. Endometrial cryoablation. Hysteroscopy with biopsy. Rhinoplasty. Laser surgery for rosacea. Social history. . Quit smoking 1982. Alcohol occasional. No drug use. Family history. Mother had Alzheimer's disease. Breast cancer. Father had colon cancer. SVT. Maternal grandmother had breast cancer. Paternal grandmother had breast cancer. Admission Exam Per Admitting Provider General- Not in distress Head- atraumatic Eyes- PERRL. ENT- oropharynx clear Neck- supple, no JVD. Lungs- clear to auscultation b/l rhonchi and wheezing heard Heart- regular rhythm; no murmur, no gallop. Abdomen- normal bowel sounds, soft, nontender, no distension. Extremities- no pretibial edema, no erythema seen. Neuro- alert, oriented x 3; PERRL, no facial palsy; no dysarthria; moves extremities. Skin- warm & dry Principal Diagnosis Pneumonia Hyponatremia Hypokalemia Discharge Data Allergies Allergy/AdvReac Type Severity Reaction Status Date / Time No Known Allergies Allergy Unverified 12/11/19 17:53 Consultations 04/20/23 02:31 ED Decision to Admit Stat 04/20/23 07:17 Consult Pulmonology Routine 04/20/23 08:00 Consult Nephrology Routine Procedures Performed Laboratory Results WBC 8.02 K/ul (4.8-10.8) 04/20/23 06:53 RBC 3.94 M/uL (4.20-5.40) L 04/20/23 06:53 Hgb 12.3 g/dl (12.0-16.0) 04/20/23 06:53 Hct 33.6 % (37.0-47.0) L 04/20/23 06:53 MCV 85.3 fL (80.0-100.0) 04/20/23 06:53 MCH 31.2 pg (25.0-34.0) 04/20/23 06:53 MCHC 36.6 g/dL (32.0-36.0) H 04/20/23 06:53 RDW Std Deviation 36.0 fL (36.4-46.3) L 04/20/23 06:53 RDW Coeff of Gill 11.6 % (11.5-14.5) 04/20/23 06:53 Plt Count 222 K/uL (130-400) 04/20/23 06:53 MPV 10.6 fL (9.4-12.4) 04/20/23 06:53 Immature Gran % (Auto) 0.4 % 04/20/23 06:53 Neut % (Auto) 67.3 % 04/20/23 06:53 Lymph % (Auto) 21.7 % 04/20/23 06:53 Dolores % (Auto) 8.1 % 04/20/23 06:53 Eos % (Auto) 1.9 % 04/20/23 06:53 Baso % (Auto) 0.6 % 04/20/23 06:53 Neut # (Auto) 5.40 K/uL (1.40-6.50) 04/20/23 06:53 Lymph # (Auto) 1.74 K/uL (1.20-3.40) 04/20/23 06:53 Dolores # (Auto) 0.65 K/uL (0.11-0.59) H 04/20/23 06:53 Eos # (Auto) 0.15 K/uL (0.00-0.50) 04/20/23 06:53 Baso # (Auto) 0.05 K/uL (0.00-0.20) 04/20/23 06:53 Immature Gran # (Auto) 0.03 K/uL (0.01-0.20) 04/20/23 06:53 Sodium 134 mmol/L (136-145) L 04/21/23 12:17 Potassium 3.9 mmol/L (3.5-5.1) 04/21/23 12:17 Chloride 101 mmol/L (98-107) 04/21/23 12:17 Carbon Dioxide 23 mmol/L (21-32) 04/21/23 12:17 Anion Gap 10 (3-11) 04/21/23 12:17 BUN 12 mg/dl (6-23) 04/21/23 12:17 Creatinine 0.85 mg/dl (0.6-1.2) D 04/21/23 12:17 Est Cr Clr Drug Dosing 68.2 ml/min 04/21/23 12:17 Est GFR ( Amer) 83.3 ml/min 04/21/23 12:17 Est GFR (Non-Af Amer) 71.9 ml/min 04/21/23 12:17 BUN/Creatinine Ratio 14.1 (10-20) 04/21/23 12:17 Glucose 130 mg/dl (70-99(Fasting)) H 04/21/23 12:17 Osmolality 253 mOsm/kg (280-300) L 04/20/23 00:51 Calcium 9.8 mg/dl (8.6-10.3) 04/21/23 12:17 Magnesium 1.9 mg/dl (1.7-2.4) 04/20/23 06:53 Total Bilirubin 0.9 mg/dl (0.2-1.0) 04/20/23 00:51 AST 20 U/L (13-39) 04/20/23 00:51 ALT 17 U/L (7-52) 04/20/23 00:51 Alkaline Phosphatase 67 U/L (34-104) 04/20/23 00:51 Troponin I High Sens 3.8 pg/ml (0-14) 04/20/23 06:53 Total Protein 7.6 gm/dl (6.0-8.3) 04/20/23 00:51 Albumin 4.6 gm/dl (3.4-5.0) 04/20/23 00:51 Globulin 3.0 gm/dl (2.5-4.0) 04/20/23 00:51 Albumin/Globulin Ratio 1.5 (0.9-2) 04/20/23 00:51 Lipase 38 U/L (11-82) 04/20/23 00:51 Procalcitonin < 0.05 ng/ml (0-0.5) 04/20/23 06:53 Urine Osmolality 158 mOsm/kg (500-800) L 04/20/23 Unknown Ur Random Sodium 34 mmol/L 04/20/23 Unknown Adenovirus (PCR) Not Detected (NotDetected) 04/20/23 00:50 B. pertussis DNA (PCR) Not Detected (NotDetected) 04/20/23 00:50 B.parapertussis DNA PCR Not Detected (NotDetected) 04/20/23 00:50 C. pneumoniae DNA (PCR) Not Detected (NotDetected) 04/20/23 00:50 Coronavirus OC43 (PCR) Not Detected (NotDetected) 04/20/23 00:50 Coronavirus HKU1 (PCR) Not Detected (NotDetected) 04/20/23 00:50 Coronavirus 229E (PCR) Not Detected (NotDetected) 04/20/23 00:50 SARS-CoV-2 (PCR) NEGATIVE (Negative) 04/20/23 00:50 SARS-CoV-2 (PCR) Not Detected (NotDetected) 04/20/23 00:50 Coronavirus NL63 (PCR) Not Detected (NotDetected) 04/20/23 00:50 Human Metapneumovir PCR Not Detected (NotDetected) 04/20/23 00:50 Influenza Type A (PCR) Negative (Neg) 04/20/23 00:50 Influenza Type A (PCR) Not Detected (NotDetected) 04/20/23 00:50 Influenza Type B (PCR) Negative (Neg) 04/20/23 00:50 Influenza Type B (PCR) Not Detected (NotDetected) 04/20/23 00:50 M. pneumoniae (PCR) Not Detected (NotDetected) 04/20/23 00:50 Parainfluenza 1 (PCR) Not Detected (NotDetected) 04/20/23 00:50 Parainfluenza 2 (PCR) Not Detected (NotDetected) 04/20/23 00:50 Parainfluenza 3 (PCR) Not Detected (NotDetected) 04/20/23 00:50 Parainfluenza 4 (PCR) Not Detected (NotDetected) 04/20/23 00:50 RSV (RT-PCR) Negative (Neg) 04/20/23 00:50 RSV (PCR) Not Detected (NotDetected) 04/20/23 00:50 Entero/Rhino (PCR) Not Detected (NotDetected) 04/20/23 00:50 Impressions Chest X-Ray 04/20/23 00:33 XR chest 1V portable CLINICAL HISTORY: Chest pain, nonspecific TECHNIQUE: Single frontal radiograph of the chest was obtained. Comparison: Comparison is made to chest radiograph 12/11/2019 FINDINGS: No lines and tubes are seen. The cardiomediastinal silhouette is normal. The lungs are clear. No evidence of pleural effusion or pneumothorax. IMPRESSION: No acute chest disease. ACT 112: Negative or not required by law. Electronically signed by: Rafa Riggins M.D. 04/20/2023 7:[address] 04/20/23 03:57 Exam(s): CT CHEST Without Contrast EXAM: CT Chest Without Intravenous Contrast CLINICAL HISTORY: Reason for exam: persisitent cough. TECHNIQUE: Axial computed tomography images of the chest without intravenous contrast. Automated exposure control was utilized for the study. A dose lowering technique was utilized adhering to the principles of ALARA. COMPARISON: No relevant prior studies available. FINDINGS: Lungs: Tree-in-bud nodularity within the lower lobes which may relate to chronic atypical infection. Pleural space: Unremarkable. No pneumothorax. No significant effusion. Heart: Coronary artery calcifications. No significant pericardial effusion. Mediastinum: Small esophageal hiatal hernia. Bones/joints: Degenerative changes in the spine. No acute fracture. No dislocation. Soft tissues: Unremarkable. Vasculature: Atherosclerotic disease. Lymph nodes: Prominent retrocrural lymph nodes measuring up to 6 mm which may be reactive in nature. Kidneys and ureters: Simple right renal cyst. No follow-up of this simple cyst is necessary. Simple left renal cyst. No follow-up of this simple cyst is necessary. IMPRESSION: 1. Tree-in-bud nodularity within the lower lobes which may relate to chronic atypical infection. 2. No other acute findings. 3. Incidental findings as described. Electronically signed by: Ervin Tucker MD 04/20/23 05:57 AM Ordered Studies 04/20/23 03:57 CT chest diagnostic wo con Urgent Hospital Course (1) Acute bronchitis: 67-year-old female with past medical significant for hypokalemia, hyperlipidemia, allergic rhinitis, hypertension, generalized anxiety disorder, presents with shortness of breath and cough ongoing since last Wednesday and progressively worsening. Bilateral rhonchi and wheezing heard. Acute bronchitis/Atypical Pneumonia--POA --CT Chest: Tree-in-bud nodularity within the lower lobes which may relate to chronic atypical infection. No other acute findings. -- BioFire negative --Normal procalcitonin Pulmonology consulted Continue doxycycline IV Solu-Medrol transition to prednisone Saturating well on room air Plan to be discharged home today Hyponatremia Sodium 122>>129>>134 Hydrochlorothiazide discontinued Received gentle IV fluids Appreciate nephrology input Needs follow-up with nephrology upon discharge Hypokalemia Replace and monitor Hypertension Continue valsartan Hydrochlorothiazide discontinued Monitor BP GERD Continue omeprazole Hyperlipidemia On statin DVT prophylaxis Lovenox Disposition Home Total Time Total Time Spent Total Time Spent (In Minutes): 45 minutes Discharge Plan Discharge Items Patient Disposition: Home - Self-Care Reason For Visit: ACUTE BRONCHITIS Discharge Diagnosis: Pneumonia Hyponatremia Hypokalemia Activity: Per Instructions section Exercise/Sports: Wait until after follow-up appointment Non-emergency contact: Primary Care Provider and Senior Patrol Agent Call non-emergency contact if: you have any medication questions, your symptoms worsen, your pain is concerning for you and you have a fever Follow-up/Referrals: Heather Borjas, [Primary Care Provider] - Diet: Low Sodium (2gm) Fluids: 1800ml (7 cups) Addtl Attending Provider Instructions: Follow-up with your primary care physician in 1 week Follow-up with your automotive diagnostic technician Dr. Brink in 2-3 weeks with repeat blood/urine test as recommended --- Complete antibiotic course (Doxycycline) and prednisone tapering course as prescribed -- Prednisone tapering course: Take prednisone 30 mg daily for 2 days, then take 20 mg daily for 2 days and then take 10mg daily for 2 days and stop as prescribed. -- Monitor your blood pressure regularly at home. Discuss with your physician for further adjustment of medications as needed. Seek immediate medical attention if your symptoms reoccur or worsen Please take all medications as instructed on discharge list below. Please call if you have any questions or problems. You can reach a [facility] hospitalist on duty at [facility] 24 hours a day by calling [phone] Pending Studies at Discharge: No Stand-Alone Forms: My [facility], Smoking Cessation Medications and DC Order Prescriptions: New doxycycline hyclate 100 mg Capsule 100 mg PO BID Qty: 11 0RF benzonatate 100 mg Capsule 100 mg PO TID PRN (Reason: Cough) Qty: 15 0RF prednisone 10 mg tablet 10 mg PO DIRECTED Qty: 12 0RF Rx Instructions: Take prednisone 30 mg daily for 2 days, then take 20 mg daily for 2 days and then take 10mg daily for 2 days and stop Continued omeprazole 40 mg capsule,delayed release(DR/EC) 40 mg PO QAM valsartan 80 mg tablet 80 mg PO QAM albuterol sulfate 90 mcg/actuation HFA aerosol inhaler 2 puff INHALATION QID PRN (Reason: Shortness Of Breath Or Wheezing) potassium chloride 20 mEq tablet extended release 20 meq PO QAM rosuvastatin 5 mg tablet 5 mg PO QPM Discontinued hydrochlorothiazide 25 mg tablet 25 mg PO QAM amoxicillin-pot clavulanate 875-125 mg tablet 1 tab PO BID Rx Instructions: ordered 04/19/23 take for 10 days Discharge Orders: Discharge Order (Routine); Ordered 04/21/23 Ordered By: Francisco Eubanks Admission Data Admit Date/Time: 04/20/23 04:04 Attending Provider: Francisco Eubanks Admit Provider: Brant Guzman Primary Care Provider: Heather Borjas Other Providers: Brant Guzman; Paty Woods; Lavonne Regalado
--- OUTSIDE RECORDS SUMMARY | 2023-04-22 00:23 | External Medical Summary | Summary of Care ---
Author Name Unknown Organization [facility] Address [address] [place] [address] Phone [phone] Care Team Providers Care Cloth Stock Sorter Name Role Phone Heather Borjas DO Primary Care Provider Reason for Visit * Reason Onset Date Comments Test Results Lab 11/12/2022 Encounter Details Date Type Department Care Team Description 11/12/2022 Telephone Family Practice [facility] [place] [address] [facility] [place] [address] Heather Borjas DO 200 [facility] [address] Test Results Lab Allergies Active Allergy Reactions Severity Noted Date Comments Pollen Other (Please comment) 01/24/2015 Itchy watery eyes, runny nose, sneezing Ragweed Other (Please comment) 01/24/2015 Itchy watery eyes, runny nose, sneezing documented as of this encounter (statuses as of 11/12/2022) Medications Medication Sig Dispensed Refills Start Date End Date Status Omeprazole 40 MG Oral Capsule Delayed Release (PriLOSEC) TAKE 1 CAPSULE BY MOUTH EVERY DAY 1 HOUR BEFORE THE FIRST MEAL OF THE DAY 30 Capsule 3 07/27/2022 Active Ibuprofen 600 MG Oral Tablet (Motrin)Indications:M uscle tension headache Take 1 tab every 6 hours as needed for headache 30 Tablet 1 09/22/2022 Active hydroCHLOROthiazide 25 MG Oral Tablet (Hydrodiuril)Indicati ons:Essential hypertension with goal blood pressure less than 140/90,RBBB (right bundle branch block) Take 1 Tablet by mouth in the morning. 90 Tablet 3 11/03/2022 Active Rosuvastatin Calcium 5 MG Oral Tablet (Crestor)Indications: Dyslipidemia, goal LDL below 130 Take 1 Tablet by mouth every evening. 90 Tablet 3 11/03/2022 Active Valsartan 80 MG Oral Tablet (Diovan)Indications:E ssential hypertension with goal blood pressure less than 140/90 TAKE 1 TABLET BY MOUTH EVERY DAY IN THE MORNING 90 Tablet 3 11/03/2022 Active Potassium Chloride ER 20 MEQ Oral Tablet Extended ReleaseIndications:Es sential hypertension with goal blood pressure less than 140/90,Hypokalemia,Dy slipidemia, goal LDL below 130 Take 1 Tablet by mouth in the morning. 90 Tablet 3 11/03/2022 Active documented as of this encounter (statuses as of 11/12/2022) Active Problems Problem Noted Date Dyslipidemia, goal LDL below 100 023 TOM (generalized anxiety disorder) 11/12 Hypokalemia 03/04/2020 Essential hypertension with goal blood p ressure less than 140/90 07/08/2017 Rosacea 01/31/2004 Allergic rhinitis 02/16/2003 documented as of this encounter (statuses as of 11/12/2022) Immunizations Name Administration Dates Next Due Covid-19, Mrna, Lnp-s, Pf, B ivalent, 30 Mcg, IM, 12 yrs and above ([employer]) 03/04/2022 PPD 01/28/2015,12/14/2012 Seasonal Influenza Virus Vac cine, Unspecified Formulation 03/04/2022 Seasonal Influenza, Quadriva lent, No Preserve, 6 Mons & Above, IM 03/26/2021,03/14/2020,03/01/2018,2017 Seasonal Influenza, Quadriva lent, No Preserve, IM 04/30/2015 Seasonal Influenza, Split, I IV3, With Preserve, Inj 04/27/2008 TD - Tetanus/Diptheria (ADULT) 06/02/2017 TDAP (age 11 and older)(Adacel) 04/27/2008 Zoster Vaccine Recombinant (Shingrix) 03/14/2020 ,01/08/2020 documented as of this encounter Social History Tobacco Use Types Packs/Day Years Used Date Smoking Tobacco: Former Cigarettes Q uit: 1982 Smokeless Tobacco: Never Comments:Socially in the pas t. stopped in mid-20s Alcohol Use Standard Drinks/Week Comments Yes 0 (1 standard drink = 0.6 oz pur e alcohol) occ Alcohol Habits Answer Date Recorded How often do you have a drink containing alcohol ? 2-4 times a month 09/08/2018 How many drinks containing a lcohol do you have on a typical day when you are drinking? 1 or 2 09/08/2018 How often do you have six or more drinks on one occasion? Never 09/08/2018 Food Insecurity Answer Date Recorded Within the past 12 months, y ou worried that your food would run out before you got money to buy more. Never true 10/12/2022 Within the past 12 months, t he food you bought just didn't last and you didn't have money to get more. Never true 10/12/2022 Sex Assigned at Date Recorded Female 12/05/2021 12:34 PM EDT Job Start Date Occupation Industry Not on file Not on file Not on file documented as of this encounter Miscellaneous Notes * Telephone Encounter - Jessica Allison LPN - 11/12/2022 11:18 AM EDT MyG sent notifying pt. * Telephone Encounter - Jessica Allison LPN - 11/12/2022 11:14 AM EDT ----- Message from Noemy Abernathy PA-C sent at 10/29/2022 9:51 PM EDT ----- Please send a lab letter stating pap smear results are normal. documented in this encounter Plan of Treatment Upcoming Encounters Date Type Specialty Care Team Description 01/19/2023 Office Visit Cardiology Mildred Arnold PA-C [address] [place] [address] 07/12/2023 Office Visit Dermatology Connie Sierra MD 200 [place] [address] Scheduled Procedures Name Priority Associated Diagnoses Date/Ti me COLONOSCOPY FLEXIBLE PROXIMA L DIAGNOSTIC Recall History of colon polyps Family history of colon cancer Health Maintenance Due Date Last Done Comments HIV Screening 1970 Hepatitis C Screening 10/23/1975 Depression Screening, Annual for Pts 12 and Over 08/20/2019 08/19/2018, 01/24/2015 DXA Scan 2022 Pneumococcal Vaccine: 65+ Years (1 - PCV) 2022 GFR 01/22/2023 01/22/2022, 06/08, 03/14/2020, Additional history exists COLONOSCOPY-EVERY 5 YRS AGES 18-100 02/18/2023 02/18/2018, 02/18/2018 Mammogram 07/17/2023 07/17/2022, 10/06, 08/23/2018, Additional history exists Diabetes Screening 01/22/2025 01/22/2022, 0 07/02/2021, 03/14/2020, Additional history exists Albumin/Creatinine Ratio 10/12/2025 10/12/2022 Lipid Panel 01/22/2027 01/22/2022, 06/08, 04/27/2020, Additional history exists DTaP,Tdap,and Td Vaccines (3 - Td or Tdap) 06/02/2027 06/02/2017, 04/27/2008 Zoster Vaccines Completed 03/14/2020, 01/08/2020 COVID-19 Vaccine Completed 03/04/2022 Influenza Vaccine (FLU shot) Completed 03/04/2022, 03/26/2021, 03/14/2020, Additional history exists Pap Smear Discontinued 10/12/2022, 08/06, 04/30/2015, Additional history exists GARDASIL-HPV IMMUNIZATION SERIES Aged Out No longer eligible based on patient's age to complete this topic Hepatitis B Aged Out No longer eligi ble based on patient's age to complete this topic MENINGOCOCCAL (MENACTRA/MENVEO) Aged Out No longer eligible based on patient's age to complete this topic documented as of this encounter Medical Devices Not on filedocumented as of this encounter Care Teams Cloth Stock Sorter Relationship Specialty Start Date End Date Heather Borjas, [address] [place] [address] PCP - General Family Medicine 07/24/11 documented as of this encounter
--- OUTSIDE RECORDS SUMMARY | 2023-04-22 00:23 | External Medical Summary | Summary of Care ---
Author Name Unknown Organization [facility] Address [address] [place] [address] Phone [phone] Care Team Providers Care Director Of Religious Activities Name Role Phone Kashmir Borjas DO Primary Care Provider Reason for Visit * Reason Comments eRx-Medication Refill Encounter Details Date Type Department Care Team (Late st Contact Info) Description 04/05/2023 Refill Family Practice [facility] [address] [facility] [place] [address] Kashmir Borjas DO [address] [place] [address] Dyslipidemia, goal LDL below 100*; Encounter for long-term (current) use of other medications Allergies Active Allergy Reactions Criticality Noted Date Comments Pollen Other (Please comment) 01/24/2015 Itchy watery eyes, runny nose, sneezing Ragweed Other (Please comment) 01/24/2015 Itchy watery eyes, runny nose, sneezing documented as of this encounter (statuses as of 04/05/2023) Medications Medication Sig Dispensed Refills Start Date End Date Status Ibuprofen 600 MG Oral Tablet (Motrin)Indication s:Muscle tension headache Take 1 tab every 6 hours as needed for headache 30 Tablet 1 09/22/2022 Active hydroCHLOROthiazid e 25 MG Oral Tablet (Hydrodiuril)Indic ations:Essential hypertension with goal blood pressure less than 140/90,RBBB (right bundle branch block) Take 1 Tablet by mouth in the morning. 90 Tablet 3 11/03/2022 Active Rosuvastatin Calcium 5 MG Oral Tablet (Crestor)Indicatio ns:Dyslipidemia, goal LDL below 130 Take 1 Tablet by mouth every evening. 90 Tablet 3 11/03/2022 Active Valsartan 80 MG Oral Tablet (Diovan)Indication s:Essential hypertension with goal blood pressure less than 140/90 TAKE 1 TABLET BY MOUTH EVERY DAY IN THE MORNING 90 Tablet 3 11/03/2022 Active Potassium Chloride ER 20 MEQ Oral Tablet Extended ReleaseIndications :Essential hypertension with goal blood pressure less than 140/90,Hypokalemia ,Dyslipidemia, goal LDL below 130 Take 1 Tablet by mouth in the morning. 90 Tablet 3 11/03/2022 Active Omeprazole 40 MG Oral Capsule Delayed Release (PriLOSEC) TAKE 1 CAPSULE BY MOUTH EVERY DAY 1 HOUR BEFORE THE FIRST MEAL OF THE DAY 90 Capsule 2 04/05/2023 Active Omeprazole 40 MG Oral Capsule Delayed Release (PriLOSEC) TAKE 1 CAPSULE BY MOUTH EVERY DAY 1 HOUR BEFORE THE FIRST MEAL OF THE DAY 30 Capsule 3 07/27/2022 3 Discontinued documented as of this encounter (statuses as of 04/05/2023) Active Problems Problem Noted Date Diagnosed Date Dyslipidemia, goal LDL below 100 08/04/2022 TOM (generalized anxiety disorder) 11/12/2021 Hypokalemia 03/04/2020 Essential hypertension with goal blood pressure less than 140/90 07/08/2017 Rosacea 01/31/2004 Allergic rhinitis 02/16/2003 documented as of this encounter (statuses as of 04/05/2023) Immunizations Name Administration Dates Next Due Covid-19, Mrna, Lnp-s, Pf, B ivalent, 30 Mcg, IM, 12 yrs and above (Pfizer) 03/04/2022 PPD 01/28/2015,12/14/2012 SEASONAL INFLUENZA, PF, 6 M & Above, IM , (FLULAVAL or FLUZONE) 03/26/2021,03/14/2020,03/01/2018,2017 Seasonal Influenza Virus Vac cine, Unspecified Formulation 03/04/2022 Seasonal Influenza, Quadriva lent, No Preserve, IM [...] = 0.6 oz pur e alcohol) occ Hunger Vital Sign Answer Date Recorded Within the past 12 months, y ou worried that your food would run out before you got the money to buy more. Never true 10/13/19 23 Within the past 12 months, t he food you bought just didn't last and you didn't have money to get more. Never true 10/12/2022 Sex and Gender Information Value Date Recorded Sex Assigned at Female 12/05/2021 12:34 PM EDT Gender Identity Female 12/05/2021 12:34 PM EDT Sexual Orientation Straight 12/05/2021 12 :34 PM EDT Job Start Date Occupation Industry Not on file Not on file Not on file documented as of this encounter Miscellaneous Notes * Telephone Encounter - Kermit Mariano RPh - 04/05/2023 3:34 PM EDT Signed Prescriptions: Disp Refills Omeprazole 40 MG Oral Capsule Delayed Rele*90 Cap*2 Sig: TAKE 1 CAPSULE BY MOUTH EVERY DAY 1 HOUR BEFORE THE FIRST MEAL OF THE DAYAuthorizing Provider: KASHMIR BORJAS User: KERMIT MARIANO documented in this encounter Plan of Treatment Upcoming Encounters Date Type Department Care Team (Late st Contact Info) Description 06/11/2023 2:00 PM EST Office Visit Cardiology, [address] [place] [address] Mildred Arnold PA-C [address] [place] [address] 07/12/2023 2:30 PM EST Office Visit Dermatology [facility] [place] [address] Connie Sierra MD 200 [facility] [id number] Scheduled Orders Name Type Priority Associated Diagnoses Orde r Schedule CBC Lab Routine Dyslipidemia, goal LDL below 100 Expected: 04/12/2023 (Approximate), Expires: 04/11/2024 COMPREHENSIVE METABOLIC PANEL Lab Routine Dyslipidemia, goal LDL below 100 Expected: 04/19/2023 (Approximate), Expires: 04/05/2024 LIPID PANEL WITH DIRECT LDL IF TG IS HIGH Lab Routine Dyslipidemia, goal LDL below 100 Expected: 04/12/2023 (Approximate), Expires: 04/11/2024 MAGNESIUM Lab Routine Encounter for long-term (current) use of other medications Expected: 04/12/2023 (Approximate), Expires: 04/11/2024 VITAMIN B12 Lab Routine Encounter for long-term (current) use of other medications Expected: 04/12/2023 (Approximate), Expires: 04/11/2024 Scheduled Procedures Name Priority Associated Diagnoses Date/Ti me COLONOSCOPY FLEXIBLE PROXIMA L DIAGNOSTIC Recall History of colon polyps Family history of colon cancer Health Maintenance Due Date Last Done Comments HIV Screening 1970 Hepatitis C Screening 10/23/1975 Depression Screening 08/20/2019 08/19/2018, 01/25/20 15 DXA Scan 2022 Pneumococcal Vaccine: 65+ Years (1 - PCV) 2022 GFR 01/22/2023 01/22/2022, 06/08, 03/14/2020, Additional history exists COLONOSCOPY-EVERY 5 YRS AGES 18-100 02/18/2023 02/18/2018, 02/18/2018 COVID-19 Vaccine ( season) 2023 02/02/2023, 03/04/2022 Mammogram 07/17/2023 07/17/2022, 10/06, 08/23/2018, Additional history exists Diabetes Screening 01/22/2025 01/22/2022, 0 07/02/2021, 03/14/2020, Additional history exists Albumin/Creatinine Ratio 10/12/2025 10/12/2022 Lipid Panel 01/22/2027 01/22/2022, 06/08, 04/27/2020, Additional history exists DTaP,Tdap,and Td Vaccines (3 - Td or Tdap) 06/02/2027 06/02/2017, 04/27/2008 Zoster Vaccines Completed 03/14/2020, 01/08/2020 Pap Smear Discontinued 10/12/2022, 08/06, 04/30/2015, Additional history exists Influenza Vaccine (FLU shot) Completed 02/02/2023, 03/04/2022, 03/26/2021, Additional history exists GARDASIL-HPV IMMUNIZATION SERIES Aged [...] Not on filedocumented as of this encounter Visit Diagnoses Diagnosis Dyslipidemia, goal LDL below 100- Primary Other and unspecified hyperlipidemia Encounter for long-term (current) use of other medications documented in this encounter Care Teams Director Of Religious Activities Relationship Specialty Start Date End Date Kashmir Borjas DO [address] [place] [address] PCP - General Family Medicine 07/24/11 documented as of this encounter
--- OUTSIDE RECORDS SUMMARY | 2023-04-22 00:23 | External Medical Summary | Summary of Care ---
Author Name Unknown Organization [facility] Address [address] [place] [address] Phone [phone] Care Team Providers Care Butadiene Convertor Operator Name Role Phone Heather Borjas DO Primary Care Provider Reason for Visit * Reason Onset Date Comments Medication Refill 11/02/2022 Encounter Details Date Type Department Care Team Description 11/02/2022 Refill Family Practice [facility] 200 [facility] [place] [address] Heather Borjas DO 200 [place] [address] Essential hypertension with goal blood pressure less than 140/90 Allergies Active Allergy Reactions Severity Noted Date Comments Pollen Other (Please comment) 01/24/2015 Itchy watery eyes, runny nose, sneezing Ragweed Other (Please comment) 01/24/2015 Itchy watery eyes, runny nose, sneezing documented as of this encounter (statuses as of 11/03/2022) Medications Medication Sig Dispensed Refills Start Date End Date Status Potassium Chloride ER 20 MEQ Oral Tablet Extended ReleaseIndications :Essential hypertension with goal blood pressure less than 140/90,Hypokalemia ,Dyslipidemia, goal LDL below 130 TAKE 1 TABLET BY MOUTH IN THE MORNING 90 Tablet 3 06/25/2022 Active hydroCHLOROthiazid e 25 MG Oral Tablet (Hydrodiuril)Indic ations:Essential hypertension with goal blood pressure less than 140/90,RBBB (right bundle branch block) Take 1 Tablet by mouth in the morning. 90 Tablet 3 07/22/2022 Active Rosuvastatin Calcium 5 MG Oral Tablet (Crestor)Indicatio ns:Dyslipidemia, goal LDL below 130 TAKE 1 TABLET BY MOUTH IN THE MORNING 90 Tablet 3 07/22/2022 Active Omeprazole 40 MG Oral Capsule Delayed Release (PriLOSEC) TAKE 1 CAPSULE BY MOUTH EVERY DAY 1 HOUR BEFORE THE FIRST MEAL OF THE DAY 30 Capsule 3 07/27/2022 Active Ibuprofen 600 MG Oral Tablet (Motrin)Indication s:Muscle tension headache Take 1 tab every 6 hours as needed for headache 30 Tablet 1 09/22/2022 Active Valsartan 80 MG Oral Tablet (Diovan)Indication s:Essential hypertension with goal blood pressure less than 140/90 TAKE 1 TABLET BY MOUTH EVERY DAY IN THE MORNING 90 Tablet 3 11/03/2022 Active Valsartan 80 MG Oral Tablet (Diovan)Indication s:Essential hypertension with goal blood pressure less than 140/90 TAKE 1 TABLET BY MOUTH EVERY DAY IN THE MORNING 90 Tablet 2 05/23/2022 11/02/2022 Discontinue d(Refill) documented as of this encounter (statuses as of 11/03/2022) Active Problems Problem Noted Date Dyslipidemia, goal LDL below 100 023 TOM (generalized anxiety disorder) 11/12 Hypokalemia 03/04/2020 Essential hypertension with goal blood p ressure less than 140/90 07/08/2017 Rosacea 01/31/2004 Allergic rhinitis 02/16/2003 documented as of this encounter (statuses as of 11/03/2022) Immunizations Name Administration Dates Next Due Covid-19, Mrna, Lnp-s, Pf, B ivalent, 30 Mcg, IM, 12 yrs and above (Pfizer) 03/04/2022 PPD 01/28/2015,12/14/2012 Seasonal Influenza Virus Vac [...] encounter Miscellaneous Notes * Telephone Encounter - Davis Weaver DO - 11/03/2022 3:23 PM EDTSigned Prescriptions: Disp Refills Valsartan 80 MG Oral Tablet (Diovan) 90 Tab*3 Sig: TAKE 1 TABLET BY MOUTH EVERY DAY IN THE MORNING Authorizing Provider: DAVIS WEAVER * Telephone Encounter - Judi Polk LPN - 11/03/2022 8:11 AM EDTPending Prescriptions: Disp Refills Valsartan 80 MG Oral Tablet (Diovan) 90 Tab*3 Sig: TAKE 1 TABLET BY MOUTH EVERY DAY IN THE MORNING * Telephone Encounter - Judi Polk LPN - 11/03/2022 8:09 AM EDT Pending Prescriptions: Disp Refills Valsartan 80 MG Oral Tablet (Diovan) 90 Tab*2 Last Visit: 10/12/2022 (in office), 12/05/2021 (telemedicine) Next Visit: Visit date not found Last date the medication was ordered: 05/23/2022 Patient Active Problem List Diagnosis Code Allergic rhinitis J30.9 Rosacea L71.9 Essential hypertension with goal blood pressure less than 140/90 I10 Hypokalemia E87.6 TOM (generalized anxiety disorder) F41.1 Dyslipidemia, goal LDL below 100 E78.5 Labs: Lab Results Component Value Date/Time CREATININE - [facility] 0.9 03/14/2020 09:54 AM CREATININE, RANDOM URINE - [facility] 81 10/12/2022 03:36 PM CREATININE-OUTSIDE LAB 0.91 01/22/2022 12:00 AM Lab Results Component Value Date/Time POTASSIUM - [facility] 3.9 03/14/2020 09:54 AM POTASSIUM-OUTSIDE LAB 4.1 01/22/2022 12:00 AM Lab Results Component Value Date/Time TSH - [facility] 0.58 04/04/2018 03:02 PM Lab Results Component Value Date/Time LDL (CALCULATED)-OUTSIDE LAB 70 01/22/2022 12:00 AM LDL (CALCULATED)-OUTSIDE LAB 128 (A) 07/02/2021 12:00 AM LDL CHOLESTEROL (CALCULATED) - [facility] 104 04/27/2020 11:17 AM LDL CHOLESTEROL (CALCULATED) - [facility] 151 (H) 03/01/2018 05:05 PM LDL CHOLESTEROL (DIRECT MEASURE) - [facility] NOT APPLICABLE 04/27/2020 11:17 AM LDL CHOLESTEROL (DIRECT MEASURE) - [facility] NOT APPLICABLE 03/01/2018 05:05 PM Lab Results Component Value Date/Time ALT - [facility] 03/14/2020 09:54 AM ALT-OUTSIDE LAB 25 01/22/2022 12:00 AM Hemoglobin AIC Results: No results found for: HEMOGLOBIN A1C documented in this encounter Plan of Treatment Upcoming Encounters Date Type Specialty Care Team Description 01/19/2023 Office Visit Cardiology Mildred Arnold PA-C [address] [place] [address] 07/12/2023 Office Visit [facility] [address] Scheduled Procedures Name Priority Associated Diagnoses Date/Ti [...] as of this encounter Visit Diagnoses Diagnosis Essential hypertension with goal blood pressure less than 140/90 documented in this encounter Care Teams Butadiene Convertor Operator Relationship Specialty Start Date End Date Heather Borjas DO [address] [place] [address] PCP - General Family Medicine 07/24/11 documented as of this encounter
--- OUTSIDE RECORDS SUMMARY | 2023-04-22 00:23 | External Medical Summary | Summary of Care ---
Author Name Unknown Organization [facility] Address [address] [place] [address] Phone [phone] Care Team Providers Care Game Design Instructor Name Role Phone Heather Borjas DO Primary Care Provider Reason for Visit * Reason Comments PAP Encounter Details Date Type Department Care Team Description 10/12/2022 Office Visit Family Practice [facility] [address] [place] [address] Heather Borjas DO [address] [place] [address] Encounter for gynecological examination without abnormal finding*; Pap smear for cervical cancer screening; HTN, goal below 130/80 Allergies Active Allergy Reactions Severity Noted Date Comments Pollen Other (Please comment) 01/24/2015 Itchy watery eyes, runny nose, sneezing Ragweed Other (Please comment) 01/24/2015 Itchy watery eyes, runny nose, sneezing documented as of this encounter (statuses as of 10/26/2022) Medications Medication Sig Dispensed Refills Start Date End Date Status Valsartan 80 MG Oral Tablet (Josie)Indications:E ssential hypertension with goal blood pressure less than 140/90 TAKE 1 TABLET BY MOUTH EVERY DAY IN THE MORNING 90 Tablet 2 05/23/2022 Active Potassium Chloride ER 20 MEQ Oral Tablet Extended ReleaseIndications:Es sential hypertension with goal blood pressure less than 140/90,Hypokalemia,Dy slipidemia, goal LDL below 130 TAKE 1 TABLET BY MOUTH IN THE MORNING 90 Tablet 3 06/25/2022 Active hydroCHLOROthiazide 25 MG Oral Tablet (Hydrodiuril)Indicati ons:Essential hypertension with goal blood pressure less than 140/90,RBBB (right bundle branch block) Take 1 Tablet by mouth in the morning. 90 Tablet 3 07/22/2022 Active Rosuvastatin Calcium 5 MG Oral Tablet (Crestor)Indications: Dyslipidemia, goal LDL below 130 TAKE 1 TABLET [...] for headache 30 Tablet 1 09/22/2022 Active documented as of this encounter (statuses as of 10/26/2022) Active Problems Problem Noted Date Dyslipidemia, goal LDL below 100 023 TOM (generalized anxiety disorder) 11/12 Hypokalemia 03/04/2020 Essential hypertension with goal blood p ressure less than 140/90 07/08/2017 Rosacea 01/31/2004 Allergic rhinitis 02/16/2003 documented as of this encounter (statuses as of 10/26/2022) Immunizations Name Administration Dates Next Due Covid-19, Mrna, Lnp-s, Pf, B ivalent Booster, 30 Mcg, IM, 12 yrs and above ([employer]) 03/04/2022 PPD 01/28/2015,12/14/2012 Seasonal Influenza Virus Vac [...] on file documented as of this encounter Last Filed Vital Signs Vital Sign Reading Time Taken Comments Blood Pressure 126/82 10/12/2022 2:49 PM EDT Pulse 102 10/12/2022 2:49 PM EDT Temperature 36.7 C (98 F) 10/12/2022 2:49 PM EDT Respiratory Rate 18 10/12/2022 2:49 PM EDT Oxygen Saturation 98% 10/12/2022 2:49 PM EDT Inhaled Oxygen Concentration - - Weight 78 kg (172 lb) 10/12/2022 2:49 PM EDT Height - - Body Mass Index 29.69 09/22/2022 11:32 AM EDT documented in this encounter Progress Notes * Heather Borjas, DO - 10/26/2022 8:11 AM EDT Jessica Danielson is a 67 year old female who presents for an annual check-up. Current concerns: Patient's past medical, surgical, family, and social history were reviewed. Medications, allergies, immunizations, and health care maintenance screenings were also reviewed. Past Medical History: Diagnosis Date Allergic rhinitis Hypertension INFORMATION Dyspigmentation 2ndary to chronic sun damage Rosacea Past Surgical History: Procedure Laterality Date COLONOSCOPY, DIAGNOSTIC (RECTUM) 02/18/2018 adenomatous polyp, diverticulosis, repeat 5 yrs/COLONOSCOPY FLEXIBLE PROXIMAL DIAGNOSTIC performed by Margie Jordan DO at ENDOSCOPY [facility] COLPSCPY CERVIX W/LOOP ELECT 1991 ENDOMETRIAL CRYOABLATION US GUIDED 09/2008 Dr. Irby for [facility] HYSTEROSCOPY W/BIOPSY AND/OR POLYPECTOMY W/WO D&C 02/09/2019 HYSTEROSCOPY WITH BIOPSY AND/OR POLYPECTOMY WITH OR WITHOUT D&C performed by Mercedes Sánchez MD at OR [facility] MAMMOGRAM - BILATERAL 11/21/03 birad 2 MAMMOGRAM SCREENING-BILATERAL 08/04/06 birad 2 MAMMOGRAM SCREENING-BILATERAL 04/13/08 birad2, benign, yearly reccm. OTHER rhinoplasty, eye lift and liposuction to neck OTHER laser surgery for roseacea Current Outpatient Medications Medication Sig Dispense Refill Valsartan 80 MG Oral Tablet (Diovan) TAKE 1 TABLET BY MOUTH EVERY DAY IN THE MORNING 90 Tablet 2 Potassium Chloride ER 20 MEQ Oral Tablet Extended Release TAKE 1 TABLET BY MOUTH IN THE [id number] Tablet 3 hydroCHLOROthiazide 25 MG Oral Tablet (Hydrodiuril) Take 1 Tablet by mouth in the morning. 90 Tablet 3 Rosuvastatin Calcium 5 MG Oral Tablet (Crestor) TAKE 1 TABLET BY MOUTH IN THE MORNING 90 Tablet3 Omeprazole 40 MG Oral Capsule Delayed Release (PriLOSEC) TAKE 1 CAPSULE BY MOUTH EVERY DAY 1 HOUR BEFORE THE FIRST MEAL OF THE DAY 30 Capsule 3 Ibuprofen 600 MG Oral Tablet (Motrin) Take 1 tab every 6 hours as needed for headache 30 Tablet1 No current facility-administered medications for this visit. Review of patient's allergies indicates: Allergen Reactions Pollen Other (Please comment) Itchy watery eyes, runny nose, sneezing Ragweed Other (Please comment) Itchy watery eyes, runny nose, sneezing Social History Socioeconomic History Marital status: Spouse name: Not on file Number of children: Not on file Years of education: Not on file Highest education level: Not on file Occupational History Not on file Tobacco Use Smoking status: Former Types: Cigarettes Quit date: 1982 Years since quittin.0 Smokeless tobacco: Never Tobacco comments: Socially in the past. stopped in mid-20s Vaping Use Vaping Use: Never used Substance and Sexual Activity Alcohol use: Yes Comment: [facility] Drug use: No Sexual activity: Yes Partners: Male control/protection: Condom Comment: G 3 P 2011, last period 3 months ago Other Topics Concern Service No Blood Transfusions No Caffeine Concern No Occupational Exposure No Hobby Hazards No Sleep Concern No Stress Concern No Weight Concern No Special Diet No Back Care No Exercise Yes Bike Helmet Not Asked Seat Belt Yes Self-Exams Yes Social History Narrative Not on file Social Determinants of Health Financial Resource Strain: Not on file Food Insecurity: No Food Insecurity Worried About Running Out of Food in the Last Year: Never true Ran Out of Food in the Last Year: Never true Transportation Needs: Not on file Physical Activity: Not on file Stress: Not on file Social Connections: Not on file Intimate Partner Violence: Not on file Housing Stability: Not on file Family History Problem Relation Age of Onset Alzheimer's disease Mother Breast Cancer Mother 60 Heart Disorder Father SVT Colon cancer Father 54 No Known Problems Sister No Known Problems Sister No Known Problems Brother No Known Problems Daughter Crohn's disease Son Breast Cancer Grandmother (Maternal) Breast Cancer Grandmother (Paternal) Review Of Systems Extensive ROS Constitutional (f/c/wt/vision/hearing): Negative Resp (cough/sob/man): Negative CV (cp/palp/fluttering/diaphoresis/man/pnd):Negative GI (n/v/d/hrtburn): Negative Endo (hair/cold or heat intol/ 3 p's): Negative Neuro (shaking/weak/fatigu/parasthesi/): Negative Skin (rash/easy bruis/xerosis): Negative Psy (si/hi/halluc/): Negative (nocturia/hesit/drib/sexual review): Negative Lymph (swollen glands/b sx's/: Negative PHYSICAL EXAMINATION: BP 126/82 | Pulse 102 | Temp 36.7 C (98 F) (Tympanic) | Resp 18 | Wt 78 kg (172 lb) | LMP 11/08/2007 | SpO2 98% | BMI 29.69 kg/m | BSA 1.87 m General appearance - well nourished, comfortable. Skin - no rashes or lesions suspicious for malignancy. Head - without deformity, mass, or tenderness. Eyes - conjuctiva clear, EOMI, Ears - canals clear, TMs normal. Nose/Sinuses - normal mucosa without mass. Oropharynx -no oral lesions. Neck - normal ROM, supple, without adenopathy, thyromegaly, or bruit. Back - without deformity or tenderness. Lungs - symmetric and full breath sounds without rales, rhonchi, or wheezes. Heart - normal precordial impulse, PMI nondisplaced, normal S1,S2, without murmurs, rubs, or gallops. carotid upstrokes 2/4 without bruit. Breasts - symmetric, no masses or tenderness, axillae negative. Abdomen - nondistended, no organomegaly, nontender to palpation,bowel sounds active. Extremities - no cyanosis, clubbing, or edema. Musculoskeletal - joints without restriction in range of motion or deformity. Peripheral pulses - symmetric and intact. Neuro - normal gait and station, without tremor, symmetric motor strength, DTRs symmetric. Pelvic-external genitalia without lesion. speculum exam revealed normal cervix . bimanual exam unremarkable for masses or tenderness. Hemoglobin AIC Results: No components found for: [id number] Lab Results Component Value Date/Time LDL (CALCULATED)-OUTSIDE LAB 70 01/22/2022 12:00 AM LDL (CALCULATED)-OUTSIDE LAB 128 (A) 07/02/2021 12:00 AM LDL CHOLESTEROL (CALCULATED) - [facility] 104 04/27/2020 11:17 AM LDL CHOLESTEROL (CALCULATED) - [facility] 151 (H) 03/01/2018 05:05 PM LDL CHOLESTEROL (DIRECT MEASURE) - [facility] NOT APPLICABLE 04/27/2020 11:17 AM LDL CHOLESTEROL (DIRECT MEASURE) - [facility] NOT APPLICABLE 03/01/2018 05:05 PM AST Results: Lab Results Component Value Date/Time AST - [facility] 23 03/14/2020 09:54 AM ALT Results: Lab Results Component Value Date/Time ALT - [facility] 30 03/14/2020 09:54 AM ALT-OUTSIDE LAB 25 01/22/2022 12:00 AM ALT-OUTSIDE LAB 25 07/02/2021 12:00 AM Social History Tobacco Use Smoking Status Former Types: Cigarettes Quit date: 1982 Years since quittin.0 Smokeless Tobacco Never Tobacco Comments Socially in the past. stopped in mid-20s BP Readings from Last 3 Encounters: 10/12/22 126/82 07/22/22 134/82 05/29/22 114/70 No results found for: MICROALB Visit date not found Immunization History Administered Date(s) Administered Covid-19, Mrna, Lnp-s, Pf, Bivalent Booster, 30 Mcg, IM, 12 yrs and above ([employer]) 03/04/2022 PPD 12/14/2012, 01/28/2015 Seasonal Influenza Virus Vaccine, Unspecified Formulation 03/04/2022 Seasonal Influenza, Quadrivalent, No Preserve, 6 Mons & Above, IM 07/08/2017, 03/01/2018, 03/14/2020, 03/26/2021 Seasonal Influenza, Quadrivalent, No Preserve, IM 04/30/2015 Seasonal Influenza, Split, IIV3, With Preserve, Inj 04/27/2008 TD - Tetanus/Diptheria (ADULT) 06/02/2017 TDAP (age 11 and older)(Adacel) 04/27/2008 Zoster Vaccine Recombinant (Shingrix) 01/08/2020, 03/14/2020 ASSESSMENT/PLAN: A healthy, low fat, low cholesterol diet and 30-60 minutes of cardiovascular exercise daily were encouraged. A total of 1500mg of Calcium and 1000 IU of vitamin D were recommended daily, to be obtained from a combination of both diet and supplement sources. UTD vaccines SPF 30+ Encounter for gynecological examination without abnormal finding (Primary) Pap smear for cervical cancer screening - TOUR GUIDE PAP SCREEN - HUMAN PAPILLOMA VIRUS, PROBE HTN, goal below 130/80 - ALBUMIN / CREATININE RATIO, URINE Heather Borjas DO documented in this encounter Nursing Notes * Judi Polk LPN - 10/12/2022 2:46 PM EDT Jessica Jagjit presents for PAP exam. Medications & HM reviewed. documented in this encounter Plan of Treatment Upcoming Encounters Date Type Specialty Care Team Description 01/19/2023 Office Visit Cardiology Mildred Arnold PA-C [address] [place] [id number] 07/12/2023 Office Visit Dermatology Connie Sierra MD [address] [place] [address] Pending Results Name Type Priority Associated Diagnoses Date /Time TOUR GUIDE PAP SCREEN Pathology Routine Pap smear for cervical cancer screening 10/12/2022 3:28 PM EDT HUMAN PAPILLOMA VIRUS, PROBE Lab Routine Pap smear for cervical cancer screening 10/12/2022 3:28 PM EDT Scheduled Procedures Name Priority Associated Diagnoses Date/Ti me COLONOSCOPY FLEXIBLE PROXIMA L DIAGNOSTIC Recall History of colon polyps Family history of colon cancer Health Maintenance Due Date Last Done Comments HIV Screening 1972 Hepatitis C Screening 10/23/1975 Depression Screening, Annual for Pts 12 and Over 08/20/2019 08/19/2018, 01/24/2015 DXA Scan 2022 Pneumococcal Vaccine: 65+ Years (1 - PCV) 2022 GFR - Renal Function 01/22/2023 01/22/2022, 07/02/2021, 03/14/2020, Additional history exists COLONOSCOPY-EVERY 5 YRS AGES 18-100 02/18/2023 02/18/2018, 02/18/2018 Mammogram 07/17/2023 07/17/2022, 10/06, 08/23/2018, Additional history exists Diabetes Screening 01/22/2025 01/22/2022, 0 07/02/2021, 03/14/2020, Additional history exists Albumin/Creatinine Ratio 10/12/2025 10/12/2022 Lipid Panel 01/22/2027 01/22/2022, 06/08, 04/27/2020, Additional history exists DTaP,Tdap,and Td Vaccines (3 - Td or Tdap) 06/02/2027 06/02/2017, 04/27/2008 Pap Smear Discontinued 08/25/2018, 04/08, 01/24/2015 (Done elsewhere), Additional history exists Zoster Vaccines Completed 03/14/2020, 01/08/2020 COVID-19 Vaccine Completed 03/04/2022 Influenza Vaccine (FLU shot) Completed 03/04/2022, 03/26/2021, 03/14/2020, Additional history exists GARDASIL-HPV IMMUNIZATION SERIES Aged [...] Not on filedocumented as of this encounter Procedures Procedure Name Priority Date/Time Associated Diagnosis Comments ALBUMIN / CREATININE RATIO, URINE Routine 10/12/2022 3:36 PM EDT HTN, goal below 130/80 documented in this encounter Results * ALBUMIN / CREATININE RATIO, URINE (10/12/2022 3:36 PM EDT) Albumin, Random Urine <1.20 mg/dL 10/12/2022 10:33 PM EDT [facility] Creatinine, Random Urine 81 mg/dL 10/12/2022 10:33 PM EDT [facility] Albumin / Creatinine Ratio, Urine <15 <30 mg/g Creat 10/12/2022 10:33 PM EDT [facility] Urine Urine specimen obtained by clean catch procedure / Unknown Non-blood Collection / Unknown 10/12/2022 3:36 PM EDT 10/12/2022 3:36 PM EDT Narrative [facility] - 10/12/2022 10:33 PM EDT Normal: <30 mg/g creatinine High: 30-300 mg/g creatinine Very High: >300 mg/g creatinine Nephrotic: >2200 mg/g creatinine Abiel Lazo DO LAB URINE ORDERABLES Performing Organization Address City/State/[facility] Co de Phone Number [facility] [address] [place] [address] documented in this encounter Visit Diagnoses Diagnosis Encounter for gynecological examination without abnormal finding- Primary Routine gynecological examination Pap smear for cervical cancer screening Screening for malignant neoplasm of the cervix HTN, goal below 130/80 Unspecified essential hypertension documented in this encounter Care Teams Game Design Instructor Relationship Specialty Start Date End Date Heather Borjas DO [address] [place] [address] PCP - General Family Medicine 07/24/11 documented as of this encounter"
--- OUTSIDE RECORDS SUMMARY | 2023-04-22 01:12 | External Medical Summary | Summary of Care ---
Author Name Unknown Organization [facility] Address [address] [place] [address] Phone [phone] Care Team Providers Care Glassie Name Role Phone Heather Borjas DO Primary Care Provider Reason for Visit * Reason Comments Cough Encounter Details Date Type Department Care Team (Latest Contact Info) Description 04/19/2023 5:15 PM EST Convenient Care Visit [facility] [address] [place] [address] Kanika Conklin PA-C [address], [place] [id number] Bronchitis*; Upper respiratory tract infection, unspecified type Allergies Active Allergy Reactions Criticality Noted Date Comments Pollen Other (Please comment) 01/24/2015 Itchy watery eyes, runny nose, sneezing Ragweed Other (Please comment) 01/24/2015 Itchy watery eyes, runny nose, sneezing documented as of this encounter (statuses as of 04/19/2023) Medications Medication Sig Dispensed Refills Start Date End Date Status Ibuprofen 600 MG Oral Tablet (Motrin)Indications: Muscle tension headache Take 1 tab every 6 hours as needed for headache 30 Tablet 1 09/22/2022 Active hydroCHLOROthiazide 25 MG Oral Tablet (Hydrodiuril)Indicat ions:Essential hypertension with goal blood pressure less than 140/90,RBBB (right bundle branch block) Take 1 Tablet by mouth in the morning. 90 Tablet 3 11/03/2022 Active Rosuvastatin Calcium 5 MG Oral Tablet (Crestor)Indications :Dyslipidemia, goal LDL below 130 Take 1 Tablet by mouth every evening. 90 Tablet 3 11/03/2022 Active Valsartan 80 MG Oral Tablet (Diovan)Indications: Essential hypertension with goal blood pressure less than 140/90 TAKE 1 TABLET BY MOUTH EVERY DAY IN THE MORNING 90 Tablet 3 11/03/2022 Active Potassium Chloride ER 20 MEQ Oral Tablet Extended ReleaseIndications:E ssential hypertension with goal blood pressure less than 140/90,Hypokalemia,D yslipidemia, goal LDL below 130 Take 1 Tablet by mouth in the morning. 90 Tablet 3 11/03/2022 Active Omeprazole 40 MG Oral Capsule Delayed Release (PriLOSEC) TAKE 1 CAPSULE BY MOUTH EVERY DAY 1 HOUR BEFORE THE FIRST MEAL OF THE DAY 90 Capsule 2 04/05/2023 Active Albuterol Sulfate HFA 108 (90 Base) MCG/ACT Inhalation Aerosol SolutionIndications: Bronchitis Inhale 2 Puffs by mouth every 4 hours as needed for Wheezing or Cough. 18 g 0 04/19/2023 Active Amoxicillin-Pot Clavulanate 875-125 MG Oral Tablet (Augmentin)Indicatio ns:Bronchitis Take 1 Tablet by mouth in the morning and 1 Tablet before bedtime. Do all this for 10 days. 20 Tablet 0 04/19/2023 04/29/2023 Active documented as of this encounter (statuses as of 04/19/2023) Active Problems Problem Noted Date Diagnosed Date Dyslipidemia, goal LDL below 100 08/04/2022 TOM (generalized anxiety disorder) 11/12/2021 Hypokalemia 03/04/2020 Essential hypertension with goal blood pressure less than 140/90 07/08/2017 Rosacea 01/31/2004 Allergic rhinitis 02/16/2003 documented as of this encounter (statuses as of 04/19/2023) Immunizations Name Administration Dates Next Due Covid-19, [...] Cigarettes Q uit: 1982 Smokeless Tobacco: Never Tobacco Cessation:Counseling Given: Not Answered Comments:Socially in the past. stopped in mid-20s Alcohol Use Standard Drinks/Week Comments Yes 0 (1 standard drink = 0.6 oz pur e alcohol) occ AUDIT-C Answer Date Recorded Frequency of Alcohol Consumption 2-4 times a wed09/08/2018 Average Number of Drinks 1 or 2 019 Frequency of Binge Drinking Never 09/2018 PHQ-2 Answer Date Recorded PHQ-2 Score 2 08/19/2018 Hunger Vital Sign Answer Date Recorded Within [...] Sign Reading Time Taken Comments Blood Pressure 150/96 04/19/2023 3:23 PM EST Pulse 120 04/19/2023 3:23 PM EST Temperature 37.1 C (98.8 F) 04/19/2023 3:23 PM ES T Respiratory Rate 16 04/19/2023 3:23 PM EST Oxygen Saturation 96% 04/19/2023 3:23 PM EST Inhaled Oxygen Concentration - - Weight 78.7 kg (173 lb 6.4 oz) 04/19/2023 3:23 P M EST Height 162.6 cm (5' 4") 04/19/2023 3:23 PM EST Body Mass Index 29.76 04/19/2023 3:23 PM EST documented in this encounter Patient Instructions * Patient Instructions* Kanika Conklin PA-C - 04/19/2023 4:24 PM EST Take all medications as prescribed You can use one medication from each of the following types for symptom relief: Nasal [place]: Flonase, Nasacort, OR Nasonex, in addition to one of these medicated nasal spray use saline nasal spray to avoid dryness and thin out mucous. Two pumps in each nostril daily. Try to keepin sinuses as long as possible. OTC antihistamine: (claritin, zyrtec, xyzal or bridget), one daily OTC decongestants: Sudafed, Mucinex-D (get from behind pharmacy counter, you have to show your ID) IF BEING TREATED FOR BLOOD PRESSURE OR KIDNEY DISEASE USE CORICIDIN HBP INSTEAD Continue supportive measures-- Drink plenty of fluids, rest, cool mist humidifier, hot showers. When you have a sore throat: Dry up the drip! Use an antihistamine (cetirizine, loratidine) to help with post nasal drip, or decongestants if you are over the age of 12. Continue supportive measures - rest, push fluids, as needed acetaminophen/ibuprofen per package directions for pain/fevers, salt water gargles It is important to swallow frequently (every 30 seconds). Recommend a clear, non-alcoholic liquid such as water or most fruit juices. Lozenges do not improve the overall health/pain in the buttermilk drier operator,as they utilize infected mucus to soothe the back of the throat. Recommend avoidance of citrus juices because these can be astringent/irritating. Recommend avoidance of dairy as this makes mucus thick and sticky. Popsicles and ice are good for people who prefer cold, and tea is good for people who prefer warm. You may also use ibuprofen or acetaminophen OTC for relief of pain or fevers. If you were Prescribed antibiotics, be sure to finish entire course even if you are feeling better. You can take florajen, a probiotic if you get nausea/diarrhea with antibiotics. Recommend taking them in between doses of antibiotic for max efficacy. Follow up with PCP within 5-7 day(s) if no improvement, sooner if worse. Go to the ED if any new or severe symptoms appear. documented in this encounter Progress Notes * Kanika Conklin PA-C - 04/19/2023 4:00 PM EST Jessica Danielson is a 67 year old female. who presents with upper and lower respiratory symptoms for 7 day(s) Patient was accompanied by Self. HPI Signs and Symptoms include: cough, sob Severity of Symptoms: Moderate Timing (how often does it occur): Constant Modifying Factors (what was done since onset of symptoms): mucinex Constitutional: no fevers, chills, sweats, fatigue Patient has not been positive for COVID in the last 90 days ROS All others negative other than those noted in HPI Recent illnesses in household: Yes HISTORY Patient Active Problem List Diagnosis Code Allergic rhinitis J30.9 Rosacea L71.9 Essential hypertension with goal blood pressure less than 140/90 I10 Hypokalemia E87.6 TOM (generalized anxiety disorder) F41.1 Dyslipidemia, goal LDL below 100 E78.5 Current Outpatient Medications Medication Sig Dispense Refill Albuterol Sulfate HFA 108 (90 Base) MCG/ACT Inhalation Aerosol Solution Inhale 2 Puffs by mouth every 4 hours as needed for Wheezing or Cough. 18 g 0 Amoxicillin-Pot Clavulanate 875-125 MG Oral Tablet (Augmentin) Take 1 Tablet by mouth in the morning and 1 Tablet before bedtime. Do all this for 10 days. 20 Tablet 0 Ibuprofen 600 MG Oral Tablet (Motrin) Take 1 tab every 6 hours as needed for headache 30 Tablet 1 hydroCHLOROthiazide 25 MG Oral Tablet (Hydrodiuril) Take 1 Tablet by mouth in the morning. 90 Tablet 3 Rosuvastatin Calcium 5 MG Oral Tablet (Crestor) Take 1 Tablet by mouth every evening. 90 Tablet 3 Valsartan 80 MG Oral Tablet (Diovan) TAKE 1 TABLET BY MOUTH EVERY DAY IN THE MORNING 90 Tablet 3 Potassium Chloride ER 20 MEQ Oral Tablet Extended Release Take 1 Tablet by mouth in the morning. 90Tablet 3 Omeprazole 40 MG Oral Capsule Delayed Release (PriLOSEC) TAKE 1 CAPSULE BY MOUTH EVERY DAY 1 HOUR BEFORE THE FIRST MEAL OF THE DAY 90 Capsule 2 No current facility-administered medications for this visit. Past Medical History: Diagnosis Date Allergic rhinitis Hypertension INFORMATION Dyspigmentation 2ndary to chronic sun damage Rosacea Past Surgical History: Procedure Laterality Date COLONOSCOPY, DIAGNOSTIC (RECTUM) 02/18/2018 adenomatous polyp, diverticulosis, repeat 5 yrs/COLONOSCOPY FLEXIBLE PROXIMAL DIAGNOSTIC performed by Margie Jordan DO at ENDOSCOPY [facility] COLPSCPY CERVIX W/LOOP ELECT 1991 ENDOMETRIAL CRYOABLATION US GUIDED 09/2008 Dr. Irby for [facility] HYSTEROSCOPY W/BIOPSY AND/OR POLYPECTOMY W/WO D&C 02/09/2019 HYSTEROSCOPY WITH BIOPSY AND/OR POLYPECTOMY WITH OR WITHOUT D&C performed by Mercedes Sánchez MD at OR [facility] MAMMOGRAM - BILATERAL 11/21/03 birad 2 MAMMOGRAM SCREENING-BILATERAL 08/04/06 birad 2 MAMMOGRAM SCREENING-BILATERAL 04/13/08 birad2, benign, yearly reccm. OTHER rhinoplasty, eye lift and liposuction to neck OTHER laser surgery for roseacea Review of patient's allergies indicates: Allergen Reactions Pollen Other (Please comment) Itchy watery eyes, runny nose, sneezing Ragweed Other (Please comment) Itchy watery eyes, runny nose, sneezing Family History Problem Relation Age of Onset Alzheimer's disease Mother Breast Cancer Mother 60 Heart Disorder Father SVT Colon cancer Father 54 No Known Problems Sister No Known Problems Sister No Known Problems Brother No Known Problems Daughter Crohn's disease Son Breast Cancer Grandmother (Maternal) Breast Cancer Grandmother (Paternal) Family Status Relation Status Mo Fa at age 56 colon cancer Sis Alive Sis Alive Bro Alive [place] Alive Son Alive MGMA (Not Specified) PGMA (Not Specified) Social History Socioeconomic History Marital status: Spouse name: Not on file Number of children: Not on file Years of education: Not on file Highest education level: Not on file Occupational History Not on file Tobacco Use Smoking status: Former Types: Cigarettes Quit date: 1982 Years since quittin.5 Smokeless tobacco: Never Tobacco comments: Socially in the past. stopped in mid-20s Vaping Use Vaping Use: Never used Substance and Sexual Activity Alcohol use: Yes Comment: occ Drug use: No Sexual activity: Yes Partners: [...] on file Food Insecurity: No Food Insecurity (10/12/2022) Hunger Vital Sign Worried About Running Out of Food in the Last Year: Never true Ran Out of Food in the Last Year: Never true Transportation Needs: Not on file Physical Activity: Not on file Stress: Not on file Social Connections: Not on file Intimate Partner Violence: Not on file Housing Stability: Not on file OBJECTIVE BP 150/96 | Pulse 120 | Temp 37.1 C (98.8 F) (Tympanic) | Resp 16 | Ht 1.626 m (5' 4") | Wt 78.7 kg (173 lb 6.4 oz) | LMP 11/08/2007 | SpO2 96% | BMI 29.76 kg/m | BSA 1.89 m Physical Exam: General Appearance: awake, alert, no apparent distress HEENT: perrl and eomi Tm right: clear, normal light reflex, no erythema Tm left: clear, normal light reflex, no erythema oral pharynx clear, mucus membranes moist + red and irritated pharynx no sinus tenderness or facial pain to percussion + turbinate engorgement and discharge Neck: normal, supple, + adenopathy Respiratory: clear to auscultation, right basilar rhonchi, no wheezes and no crackles Heart: regular rate, regular rhythm, no murmurs , no rubs and no gallops Skin: skin color, texture, turgor are normal, no rashes or significant lesions Patient instructions: Patient Instructions Take all medications as prescribed You can use one medication from each of the following types for symptom relief: Nasal [place]: Flonase, Nasacort, OR Nasonex, in addition to one of these medicated nasal spray use saline nasal spray to avoid dryness and thin out mucous. Two pumps in each nostril daily. Try to keepin sinuses as long as possible. OTC antihistamine: (claritin, zyrtec, xyzal or bridget), one daily OTC decongestants: Sudafed, Mucinex-D (get from behind pharmacy counter, you have to show your ID) IF BEING TREATED FOR BLOOD PRESSURE OR KIDNEY DISEASE USE CORICIDIN HBP INSTEAD Continue supportive measures-- Drink plenty of fluids, rest, cool mist humidifier, hot showers. When you have a sore throat: Dry up the drip! Use an antihistamine (cetirizine, loratidine) to help with post nasal drip, or decongestants if you are over the age of 12. Continue supportive measures - rest, push fluids, as needed acetaminophen/ibuprofen per package directions for pain/fevers, salt water gargles It is important to swallow frequently (every 30 seconds). Recommend a clear, non-alcoholic liquid such as water or most fruit juices. Lozenges do not improve the overall health/pain in the nursing home,as they utilize infected mucus to soothe the back of the throat. Recommend avoidance of citrus juices because these can be astringent/irritating. Recommend avoidance of dairy as this makes mucus thick and sticky. Popsicles and ice are good for people who prefer cold, and tea is good for people who prefer warm. You may also use ibuprofen or acetaminophen OTC for relief of pain or fevers. If you were Prescribed antibiotics, be sure to finish entire course even if you are feeling better. You can take florajen, a probiotic if you get nausea/diarrhea with antibiotics. Recommend taking them in between doses of antibiotic for max efficacy. Follow up with PCP within 5-7 day(s) if no improvement, sooner if worse. Go to the ED if any new or severe symptoms appear. ASSESSMENT AND PLAN Bronchitis (Primary) - Albuterol Sulfate HFA 108 (90 Base) MCG/ACT Inhalation Aerosol Solution; Inhale 2 Puffs by mouth every 4 hours as needed for Wheezing or Cough. - Amoxicillin-Pot Clavulanate 875-125 MG Oral Tablet (Augmentin); Take 1 Tablet by mouth in the morning and 1 Tablet before bedtime. Do all this for 10 days. Upper respiratory tract infection, unspecified type Concerned with worsening symptoms and exam findings. Will treat to cover for majority of pneumonia.Cxr deferred. Albuterol inhaler as patient's bp inhibitory for prednisone use. Covid testing deferred by patient. To re-assess if no improvement. Would also get cxr at that time. Care instructions given. Additional instructions per patient instructions attached. Follow up with PCP in 3 days if symptoms persist. Reasons to go to ED discussed with patient including but not limited to development of acute or severe symptoms. Patient agrees with the plan and demonstrates verbal understanding. Patient stable at the time of discharge. Patient goals for plan of care were discussed. Kanika Conklin PA-C [address] [address] documented in this encounter Nursing Notes * Liv López LPN - 04/19/2023 3:25 PM EST 67 yo female presents with cough, SOB x 3 days. Took mucinex documented in this encounter Plan of Treatment Upcoming Encounters Date Type Department Care Team (Late st Contact Info) Description 06/11/2023 2:00 PM EST Office Visit Cardiology, [facility] [address] [facility] [place] [address] Mildred Arnold PA-C [address] [place] [id number] 07/12/2023 2:30 PM EST Office Visit D[facility]atology [facility] [address] [facility] [address] [place] [address] Connie Sierra MD [address] [place] [address] Scheduled Procedures Name Priority Associated Diagnoses Date/Ti [...] AGES 18-100 02/18/2023 02/18/2018, 02/18/2018 COVID-19 Vaccine (3 - 2022- season) 2023 02/02/2023, 03/04/2022 Mammogram 07/17/2023 07/17/2022, [...] as of this encounter Visit Diagnoses Diagnosis Bronchitis- Primary Bronchitis, not specified as acute or chronic Upper respiratory tract infection, unspecified type documented in this encounter Care Teams Glassie Relationship Specialty Start Date End Date Heather Borjas DO [address] [place] [address] PCP - General Family Medicine 07/24/11 documented as of this encounter
== END 2023-04-21 18:00 | disposition home or self-care (01) | DRG 194 ==
LOC: ED 00:10 → EDINP 04:04 → SUATTDRO 04:04 → 2W 21:40
DX: Z87.891 Personal history of nicotine dependence; E78.5 Hyperlipidemia, unspecified; E87.1 Hypo-osmolality and hyponatremia; Z79.899 Other long term (current) drug therapy; J30.9 Allergic rhinitis, unspecified; I10 Essential (primary) hypertension; F41.1 Generalized anxiety disorder; E87.6 Hypokalemia; J18.9 Pneumonia, unspecified organism; K21.9 Gastro-esophageal reflux disease without esophagitis; E86.0 Dehydration; J20.9 Acute bronchitis, unspecified